=== PATIENT | male | born 1955 | race Caucasian/White ===

== ENCOUNTER 2016-10-23 02:10 | Emergency (ER) | payer MEDICARE, MEDICAID ==
[~2016-10-23] VITALS: Ht 172.7 cm; Wt 115.5 kg
[~2016-10-23 02:10] MED LIST: ALLO300; ALLO300T2 PO; CITA20 PO; LISI-363 PO; VALI5TAB OR
[2016-10-23 02:11] VITALS: BP 154/69; PULSE 92; RESP 16; TEMP 98.1; O2SAT 95
[2016-10-23 03:31] LABS: BASOPHIL # 0.1 TH/MM3 (0-0.2); BASOPHIL % 0.7 % (0.0-2.0); EOSINOPHIL % 0.5 % (0.0-4.0); HEMATOCRIT 37.6 % (39.0-51.0); HEMO FLAGS DIFF FINAL; LYMPH % 28.3 % (9.0-44.0); LYMPHOCYTE # 2.2 TH/MM3 (1.0-4.8); MEAN CELL VOLUME 92.2 FL (80.0-100.0); MEAN CORPUSCULAR HGB CONC 34.7 % (32.0-36.0); MONO % 6.6 % (0.0-8.0); NEUT % 63.9 % (16.0-70.0); PLATELET COUNT 191 TH/MM3 (150-450); RED BLOOD COUNT 4.08 MIL/MM3 (4.50-5.90); RED CELL DISTRIBUTION WIDTH 13.5 % (11.6-17.2); WHITE BLOOD COUNT 7.9 TH/MM3 (4.0-11.0)
[2016-10-23 03:40] LABS: AMPHETAMINE, URINE NEG (NEG); BARBITURATES, URINE NEG (NEG); COCAINE, URINE NEG (NEG)
[2016-10-23 03:51] LABS: ALKALINE PHOSPHATASE 56 U/L (45-117); TOTAL BILIRUBIN ADULT 0.4 MG/DL (0.2-1.0)
[2016-10-23 03:52] LABS: ALT (GPT) 32 U/L (12-78); ANION GAP 6 MEQ/L (5-15); AST (GOT) 16 U/L (15-37); BICARBONATE 25.9 MEQ/L (21.0-32.0); BLOOD UREA NITROGEN 20 MG/DL (7-18); CHLORIDE 108 MEQ/L (98-107); GLOMERULAR FILTRATION RATE 75 ML/MIN (>89); SODIUM (NA) 140 MEQ/L (136-145)
[2016-10-23 03:57] LABS: ACETAMINOPHEN LESS THAN 2.0 MCG/ML (10.0-30.0); POTASSIUM 4.2 MEQ/L (3.5-5.1)
--- NOTE | 2016-10-23 04:35 | PD ---
HPI Chief Complaint: Psychiatric Symptoms Time Seen by Provider: 04:34 Travel History International Travel<30 days: No Contact w/Intl Traveler<30days: No Traveled to known affect area: No History of Present Illness HPI 61-year-old white male presents to emergency department on a voluntary basis for psychological evaluation. The patient has a history of schizoaffective disorder. The patient states that he is feeling increasingly depressed. His little over one year ago. He has not been able to sleep. He' s become less active and mobile. He suffering from chronic back pain. The patient is an extremely vague historian. He denies any suicidal or homicidal ideation. PFSH Past Medical History Narrative Medical Gout, hyperlipidemia, obesity, history of insomnia, hypertension, schizoaffective disorder Bipolar Disorder: No (states thinks he is, not dx) Depression: Yes Cardiovascular Problems: Yes High Cholesterol: Yes Diminished Hearing: No Gout: Yes Hypertension: Yes Psychiatric: Yes Schizophrenia: No (states thinks he is on verge of becoming, not dx) Tetanus Vaccination: Unknown Past Surgical History Narrative Surgical Herniorrhaphy Abdominal Surgery: Yes (HERNIA REPAIR) Body Medical Devices: GOUT Social History Alcohol Use: No Tobacco Use: No Substance Use: No Allergies-Medications (Allergen,Severity, Reaction): Uncoded Allergies: ibuprofen (Allergy, Severe, 04/26/12) Throat swelling Reported Meds & Prescriptions Reported Meds & Active Scripts Active Reported Zyloprim 300 Mg Tab (Allopurinol) 300 Mg Tab 300 Mg .XX Valium (Diazepam) 5 Mg Tab 5 Mg OR TID Allopurinol 300 Mg Tab 300 Mg PO DAILY Celexa 20 Mg Tab (Citalopram Hydrobromide) 20 Mg Tab 20 Mg PO DAILY Lisinopril 20 Mg Tab 20 Mg PO BID Review of Systems ROS Limitations: Poor Historian Physical Exam Narrative GENERAL: Well-nourished, well-developed patient. Obese. His speech is slow and he seems somewhat disorganized. Tangential thought process. SKIN: Warm and dry. HEAD: Normocephalic and atraumatic. EYES: No scleral icterus. No injection or drainage. ENT: No nasal drainage noted. Mucous membranes pink. Airway patent. NECK: Supple, trachea midline. Moves head freely without obvious discomfort. CARDIOVASCULAR: Regular rate and rhythm without murmurs, gallops, or rubs. RESPIRATORY: Breath sounds equal bilaterally. No accessory muscle use. GASTROINTESTINAL: Abdomen soft, non-tender, obese EXTREMITIES: No cyanosis or edema. BACK: Complains of diffuse tenderness in the lower lumbar spine. Moves slowly due to pain. Without obvious deformity. No CVA tenderness. NEURO: Patient is alert and oriented. no sensorimotor deficits. Nonfocal. Normal speech. PSYCH: No delusions. No auditory or visual hallucinations. Data Data Last Documented VS Vital Signs Date Time Temp Pulse Resp B/P Pulse Ox O2 Delivery O2 Flow Rate FiO2 10/23/16 02:11 98.1 92 16 154/69 95 Room Air Orders Complete Blood Count With Diff (10/23/16 02:53) Comprehensive Metabolic Panel (10/23/16 02:53) Drug Screen, Random Urine (10/23/16 02:53) Alcohol (Ethanol) (10/23/16 02:53) Salicylates (Aspirin) (10/23/16 02:53) Tylenol (Acetaminophen) (10/23/16 02:53) Psych Screen (10/23/16 02:53) Labs Laboratory Tests Test 10/23/16 03:00 White Blood Count 7.9 TH/MM3 Red Blood Count 4.08 MIL/MM3 Hemoglobin 13.1 GM/DL Hematocrit 37.6 % Mean Corpuscular Volume 92.2 FL Mean Corpuscular Hemoglobin 32.0 PG Mean Corpuscular Hemoglobin 34.7 % Concent Red Cell Distribution Width 13.5 % Platelet Count 191 TH/MM3 Mean Platelet Volume 10.1 FL Neutrophils (%) (Auto) 63.9 % Lymphocytes (%) (Auto) 28.3 % Monocytes (%) (Auto) 6.6 % Eosinophils (%) (Auto) 0.5 % Basophils (%) (Auto) 0.7 % Neutrophils # (Auto) 5.0 TH/MM3 Lymphocytes # (Auto) 2.2 TH/MM3 Monocytes # (Auto) 0.5 TH/MM3 Eosinophils # (Auto) 0.0 TH/MM3 Basophils # (Auto) 0.1 TH/MM3 CBC Comment DIFF FINAL Differential Comment Sodium Level 140 MEQ/L Potassium Level 4.2 MEQ/L Chloride Level 108 MEQ/L Carbon Dioxide Level 25.9 MEQ/L Anion Gap 6 MEQ/L Blood Urea Nitrogen 20 MG/DL Creatinine 1.01 MG/DL Estimat Glomerular Filtration 75 ML/MIN Rate Random Glucose 105 MG/DL Calcium Level 8.8 MG/DL Total Bilirubin 0.4 MG/DL Aspartate Amino Transf 16 U/L (AST/SGOT) Alanine Aminotransferase 32 U/L (ALT/SGPT) Alkaline Phosphatase 56 U/L Total Protein 7.0 GM/DL Albumin 3.6 GM/DL Salicylates Level LESS THAN 1.7 MG/DL Urine Opiates Screen NEG Acetaminophen Level LESS THAN 2.0 MCG/ML Urine Barbiturates Screen NEG Urine Amphetamines Screen NEG Urine Benzodiazepines Screen NEG Urine Cocaine Screen NEG Urine Cannabinoids Screen NEG Ethyl Alcohol Level LESS THAN 3 MG/DL MDM Medical Decision Making Medical Screen Exam Complete: Yes Emergency Medical Condition: Yes Medical Record Reviewed: Yes Interpretation(s) Laboratory Tests Test 10/23/16 03:00 White Blood Count 7.9 TH/MM3 Red Blood Count 4.08 MIL/MM3 Hemoglobin 13.1 GM/DL Hematocrit 37.6 % Mean Corpuscular Volume 92.2 FL Mean Corpuscular Hemoglobin 32.0 PG Mean Corpuscular Hemoglobin 34.7 % Concent Red Cell Distribution Width 13.5 % Platelet Count 191 TH/MM3 Mean Platelet Volume 10.1 FL Neutrophils (%) (Auto) 63.9 % Lymphocytes (%) (Auto) 28.3 % Monocytes (%) (Auto) 6.6 % Eosinophils (%) (Auto) 0.5 % Basophils (%) (Auto) 0.7 % Neutrophils # (Auto) 5.0 TH/MM3 Lymphocytes # (Auto) 2.2 TH/MM3 Monocytes # (Auto) 0.5 TH/MM3 Eosinophils # (Auto) 0.0 TH/MM3 Basophils # (Auto) 0.1 TH/MM3 CBC Comment DIFF FINAL Differential Comment Sodium Level 140 MEQ/L Potassium Level 4.2 MEQ/L Chloride Level 108 MEQ/L Carbon Dioxide Level 25.9 MEQ/L Anion Gap 6 MEQ/L Blood Urea Nitrogen 20 MG/DL Creatinine 1.01 MG/DL Estimat Glomerular Filtration 75 ML/MIN Rate Random Glucose 105 MG/DL Calcium Level 8.8 MG/DL Total Bilirubin 0.4 MG/DL Aspartate Amino Transf 16 U/L (AST/SGOT) Alanine Aminotransferase 32 U/L (ALT/SGPT) Alkaline Phosphatase 56 U/L Total Protein 7.0 GM/DL Albumin 3.6 GM/DL Salicylates Level LESS THAN 1.7 MG/DL Urine Opiates Screen NEG Acetaminophen Level LESS THAN 2.0 MCG/ML Urine Barbiturates Screen NEG Urine Amphetamines Screen NEG Urine Benzodiazepines Screen NEG Urine Cocaine Screen NEG Urine Cannabinoids Screen NEG Ethyl Alcohol Level LESS THAN 3 MG/DL Differential Diagnosis MDM: High Differential diagnoses: Schizophrenia, schizoaffective disorder, bipolar, anxiety, depression, adjustment reaction, mood disorder NOS, ODD, depressive disorder NOS, dementia, dementia with agitation, psychosis NOS, substance induced mood disorder, intermittent explosive disorder, Asperger syndrome, infection,electrolyte abnormality, malingering. Narrative Course Mental health screening discussed with the patient. Psychiatric screen ordered. The patient is been medically cleared. 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
[2016-10-23 05:24] VITALS: BP 135/86; PULSE 83; RESP 19; TEMP 98.7; O2SAT 97
[2016-10-23 06:44] VITALS: BP 142/81; PULSE 85; RESP 17; O2SAT 98
--- NOTE | 2016-10-23 11:15 | MB ---
cc: BEAU CASTELAN MD DATE OF CONSULTATION: 10/23/2016 PHYSICIAN REQUESTING CONSULTATION Emergency Department. REASON FOR CONSULTATION Voluntary psychiatric evaluation. HISTORY OF PRESENT ILLNESS Mr. Dodd is a 61-year-old male with uncertain reported past psychiatric history, who presents on a voluntary basis for psychiatric evaluation. He told the ED provider that he was feeling more depressed. He told the psychiatric screener that sometimes he hears things outside of his house at night. Reviewing the electronic medical record I note that the patient was admitted under Dr. Palmer in April of 2013. Dr. Palmer's discharge diagnosis was depression NOS. The patient is seen and examined. Chart reviewed. Case discussed with nursing staff. There has been no evidence of any suicidality or homicidality during observation in the J pod. On my examination this morning, the patient strikes me chiefly as fairly dependent and needy. He says that the reason that he came into the emergency room was because he was looking for "an answer. Everyone needs an answer." He is unable to really provide much detail into what sort of answer he was seeking. He describes his mood as "pretty docile." His sleep is reportedly chronically poor. No real depressive or hypomanic/manic symptoms. He denies any suicidal or homicidal ideation. He denies any audiovisual hallucinations and I can elicit no delusional beliefs. The remainder of the psychiatric ROS is negative. The patient does not feel that he needs to be psychiatrically hospitalized at this time. PAST PSYCHIATRIC HISTORY The patient is unsure of his diagnosis. He has the chart diagnosis of depressive disorder. He says that he follows with Dr. Keenan from psychiatry in the community. He says that his most recent psychiatric hospital was at [facility] about 2 years ago. He denies a history of suicide attempts. FAMILY HISTORY The patient denies a family history of serious mental illness or suicide. He does admit that there is a family history of drug use. CHEMICAL DEPENDENCY HISTORY When I inquire if the patient is using any drugs or alcohol he says "a little of each." He goes on to elaborate that he has been using Percocet and Xanax. When I try to pin him down on the exact quantities, he is fairly vague. He says "whatever I can get." He relates that he went to an old physician of his to get some Xanax tablets. I have reviewed the patient's [email or web address] controlled substances database report. It appears that he was given some hydrocodone, acetaminophen at the end of September and then has similar script for Hydrocodone, acetaminophen at the end of August along with Xanax script from the middle of August. Before this the Xanax prescriptions are more sporadic but the patient has been receiving the opiates throughout. SOCIAL HISTORY The patient reports that he has a tenth grade education. He is disabled from a back injury in 2008. He says that his common-law of 30 years last June. He seems to be grieving appropriately. He denies any or legal history. He denies any access to guns or firearms. PAST MEDICAL HISTORY See electronic medical record. REVIEW OF SYSTEMS No reported headache, vision or hearing changes, chest pain, shortness of breath, bowel or bladder issues. No other somatic complaints. The remainder of the psychiatric ROS is negative. MENTAL STATUS EXAMINATION The patient is in hospital w. He is fairly well-groomed. He is awake and alert and oriented to person, place and date. His registration is 3/3 but his recall is 0/3. He is able to spell the word world forward and backward without error. He is able to name two items and repeat a phrase. He is able to name the current president but cannot recall any of the previous presidents. Speech is within normal limits for rate, tone and volume. Language and fund of knowledge seem adequate and appropriate for age. Mood is described as above and affect is fairly full and reactive. Thought process is linear. No loosening of associations. No evident delusions. Denies audiovisual hallucinations. Denies suicidal or homicidal ideation. Insight and judgment are perhaps fair. ASSESSMENT/PLAN 1. Adjustment disorder, unspecified. This is a 61-year-old male with psychiatric history as detailed above, who presents on a voluntary basis for psychiatric evaluation. The patient's goals in seeking psychiatric evaluation are somewhat obscure and he is unable to really clarify them for me. He denies any suicidal or homicidal ideation at present. I can detect no unstable mood, anxiety or psychotic disorder in this patient at this time. There has been no evidence of behavioral disturbance or suicidality/violence in the J pod. The patient does not meet Crooks Act criteria, nor does he require inpatient psychiatric stabilization at this time. There may be a component of substance use disorder if the patient has been misusing his prescribed controlled substances. I recommend that the patient follow up with his outpatient psychiatric provider. I have also counseled the patient to return to the psychiatric emergency room for any concerning psychiatric symptoms. Otherwise, at this time I have no specific recommendations and the patient is psychiatrically clear for discharge from the ED. Thank you very much for this consultation. Beau Castelan DC/ALFERDITO /8:39 AM /10:56 AM NABIL
[2016-10-24] MEDS ORDERED: DIAZ5 PO ×2 (13:24)
[2016-10-24] MEDS ORDERED: CELE20TA PO ×2 (13:24)
[2016-10-24] MEDS ORDERED: ALLO300T2 PO ×2 (13:24)
[2016-10-24] MEDS ORDERED: LISI-515 PO ×2 (13:24)
== END 2016-10-23 09:43 | disposition home or self-care (01) ==
LOC: NEPA 02:10 → NEPJ 09:43
DX: F32.3 Major depressive disorder, single episode, severe with psychotic features (principal); G89.29 Other chronic pain; F32.9 Major depressive disorder, single episode, unspecified; E78.00 Pure hypercholesterolemia, unspecified; M10.9 Gout, unspecified; I10 Essential (primary) hypertension
CPT/HCPCS: 80053; 80307; 85025; 99283; G0480; 80320; 80329

== ENCOUNTER 2016-10-24 11:06 | Inpatient (IN) | payer OTHER, MEDICARE ==
[~2016-10-24] VITALS: Ht 175.3 cm; Wt 113.0 kg
[2016-10-24] VITALS (10 sets, daily range): BP systolic 109–181; BP diastolic 58–84; PULSE 69–101; RESP 15–25; TEMP 98.2–98.8; O2SAT 97–99
--- NOTE | 2016-10-24 11:09 | PD ---
HPI Chief Complaint: Altered Mental Status Time Seen by Provider: 11:09 Travel History International Travel<30 days: No Contact w/Intl Traveler<30days: No Traveled to known affect area: No History of Present Illness HPI 61-year-old male brought in by EMS with altered mental status. Patient reportedly was outside a local druze early this morning, and spoke to police at approximately 3 AM. At that time he states he took his bipolar medications. Is now reported that the patient drank almost a whole 12 ounce bottle of mouthwash and took at least 2 Lortabs. He now presents obtunded but stable. It is notable the patient was seen yesterday for psychiatric evaluation for his major depression. Patient is currently nonverbal but oxygenating well. There is no sign of trauma on the patient. Patient has an allergy to ibuprofen. PFSH Past Medical History Medical History: Unable to Obtain Bipolar Disorder: No (states thinks he is, not dx) Depression: Yes Cardiovascular Problems: Yes High Cholesterol: Yes Diminished Hearing: No Gout: Yes Hypertension: Yes Psychiatric: Yes Schizophrenia: No (states thinks he is on verge of becoming, not dx) Past Surgical History Abdominal Surgery: Yes (HERNIA REPAIR) Body Medical Devices: GOUT Social History Alcohol Use: No Tobacco Use: No Substance Use: No (DENIED) Allergies-Medications (Allergen,Severity, Reaction): Uncoded Allergies: ibuprofen (Allergy, Severe, 04/26/12) Throat swelling Reported Meds & Prescriptions Reported Meds & Active Scripts Active Reported Lisinopril 20 Mg Tab 20 Mg PO BID Valium (Diazepam) 5 Mg Tab 5 Mg PO TID Celexa (Citalopram Hydrobromide) 20 Mg Tab 20 Mg PO DAILY Allopurinol 300 Mg Tab 300 Mg PO DAILY Review of Systems ROS Limitations: Intoxication General / Constitutional: No: Fever Eyes: No: Visual changes HENT: No: Headaches Cardiovascular: No: Chest Pain or Discomfort Respiratory: No: Shortness of Breath Gastrointestinal: No: Abdominal Pain Genitourinary: No: Dysuria Musculoskeletal: No: Pain Skin: No Rash Neurologic: No: Weakness Psychiatric: No: Depression Endocrine: No: Polydipsia Hematologic/Lymphatic: No: Easy Bruising Physical Exam Exam Limitations: Intoxication Narrative GENERAL: Patient appears to be resting comfortably and in no acute distress. SKIN: Warm and dry. Normal color. Normal turgor. HEAD: Atraumatic. Normocephalic. Nontender. EYES: Pupils mildly pinpoint and equal and round. No scleral icterus. No injection or drainage. ENT: No nasal bleeding or discharge. Mucous membranes pink and moist. Pharynx is normal. No signs of dental injury. Airways patent. NECK: Trachea midline. No JVD. Neck is supple. There is no step-off. CARDIOVASCULAR: Regular rate and rhythm. No murmurs gallops or rubs. RESPIRATORY: No accessory muscle use. Clear to auscultation. Breath sounds equal bilaterally. MUSCULOSKELETAL: Extremities without clubbing, cyanosis, or edema. No obvious deformities. NEUROLOGICAL: Obtunded but arousable. No obvious cranial nerve deficits. Motor grossly within normal limits. Five out of 5 muscle strength in the arms and legs. PSYCHIATRIC: Patient is nonverbal. Cannot assess at this time. Data Data Last Documented VS Vital Signs Date Time Temp Pulse Resp B/P Pulse Ox O2 Delivery O2 Flow Rate FiO2 10/24/16 13:00 96 16 181/84 98 2 10/24/16 12:00 Nasal Cannula 10/24/16 11:16 98.6 Orders Electrocardiogram (10/24/16 11:14) Alcohol (Ethanol) (10/24/16 11:14) Complete Blood Count With Diff (10/24/16 11:14) Comprehensive Metabolic Panel (10/24/16 11:14) Drug Screen, Random Urine (10/24/16 11:14) Salicylates (Aspirin) (10/24/16 11:14) Tylenol (Acetaminophen) (10/24/16 11:14) Urinalysis - C+S If Indicated (10/24/16 11:14) Chest, Single Ap (10/24/16 11:14) Iv Access Insert/Monitor (10/24/16 11:14) Cath For Specimen (10/24/16 11:14) Ecg Monitoring (10/24/16 11:14) Oximetry (10/24/16 11:14) Sodium Chloride 0.9% Flush (Ns Flush) (10/24/16 11:15) Sodium Chlor 0.9% 1000 Ml Inj (Ns 1000 M (10/24/16 11:14) Psych Screen (10/24/16 11:21) Ammonia Aromatic Inhalant (Aromatic Ammo (10/24/16 11:45) Naloxone Inj (Narcan Inj) (10/24/16 12:00) Ct Brain W/O Iv Contrast(Rout) (10/24/16 11:53) Fosphenytoin Inj (Cerebyx Inj) (10/24/16 12:00) Arterial Blood Gas (Abg) (10/24/16 ) Naloxone Inj (Narcan Inj) (10/24/16 12:45) Naloxone Inj (Narcan Inj) (10/24/16 13:00) Admit Order (Ed Use Only) (10/24/16 14:37) Place In Observation (10/24/16 ) Vital Signs (Adult) Q4H (10/24/16 14:37) Neuro Checks Q4H (10/24/16 14:37) Activity Oob With Assistance (10/24/16 14:37) ^ Cloth Folder Hand / Telemetry .CONTINUOUS (10/24/16 14:37) Intake + Output ARISTEO.QSHIFT (10/24/16 14:37) Diet Regular Basic (10/24/16 Dinner) Sodium Chloride 0.9% Flush (Ns Flush) (10/24/16 14:45) Sodium Chloride 0.9% Flush (Ns Flush) (10/24/16 21:00) Acetaminophen (Tylenol) (10/24/16 14:45) Ondansetron Inj (Zofran Inj) (10/24/16 14:45) Prochlorperazine Supp (Compazine Supp) (10/24/16 14:45) Bisacodyl Supp (Dulcolax Supp) (10/24/16 14:45) Magnesium Hydroxide Liq (Milk Of Magnesi (10/24/16 14:45) Sennosides (Senokot) (10/24/16 14:45) Basic Metabolic Panel (Bmp) (10/25/16 06:00) Complete Blood Count With Diff (10/25/16 06:00) Resp Oxygen Ananda C Titrat 1-4 L (10/24/16 ) Pt Request For Service (10/24/16 14:37) Case Management Consult (10/24/16 14:37) Enoxaparin Inj (Lovenox Inj) (10/24/16 14:45) Scd Bilateral/Knee High ARISTEO.BID (10/24/16 14:37) Simon Bilateral/Knee High ARISTEO.QSHIFT (10/24/16 14:37) ^ Seizure Precautions (10/24/16 14:37) Labs Laboratory Tests Test 10/24/16 10/24/16 11:50 12:10 White Blood Count 12.3 TH/MM3 Red Blood Count 4.07 MIL/MM3 Hemoglobin 12.9 GM/DL Hematocrit 38.0 % Mean Corpuscular Volume 93.2 FL Mean Corpuscular Hemoglobin 31.8 PG Mean Corpuscular Hemoglobin 34.1 % Concent Red Cell Distribution Width 13.4 % Platelet Count 227 TH/MM3 Mean Platelet Volume 9.9 FL Neutrophils (%) (Auto) 83.6 % Lymphocytes (%) (Auto) 9.9 % Monocytes (%) (Auto) 5.3 % Eosinophils (%) (Auto) 0.5 % Basophils (%) (Auto) 0.7 % Neutrophils # (Auto) 10.3 TH/MM3 Lymphocytes # (Auto) 1.2 TH/MM3 Monocytes # (Auto) 0.7 TH/MM3 Eosinophils # (Auto) 0.1 TH/MM3 Basophils # (Auto) 0.1 TH/MM3 CBC Comment DIFF FINAL Differential Comment Sodium Level 138 MEQ/L Potassium Level 4.1 MEQ/L Chloride Level 103 MEQ/L Carbon Dioxide Level 24.1 MEQ/L Anion Gap 11 MEQ/L Blood Urea Nitrogen 22 MG/DL Creatinine 1.24 MG/DL Estimat Glomerular Filtration 59 ML/MIN Rate Random Glucose 143 MG/DL Calcium Level 9.7 MG/DL Total Bilirubin 0.6 MG/DL Aspartate Amino Transf 20 U/L (AST/SGOT) Alanine Aminotransferase 38 U/L (ALT/SGPT) Alkaline Phosphatase 72 U/L Total Protein 8.2 GM/DL Albumin 4.5 GM/DL Salicylates Level 2.2 MG/DL Acetaminophen Level LESS THAN 2.0 MCG/ML Ethyl Alcohol Level LESS THAN 3 MG/DL Urine Color YELLOW Urine Turbidity CLEAR Urine pH 5.0 Urine Specific [place] 1.030 Urine Protein NEG mg/dL Urine Glucose (UA) NEG mg/dL Urine Ketones 10 mg/dL Urine Occult Blood SMALL Urine Nitrite NEG Urine Bilirubin NEG Urine Urobilinogen LESS THAN 2.0 MG/DL Urine Leukocyte Esterase NEG Urine RBC 20 /hpf Urine WBC 1 /hpf Urine Squamous Epithelial <1 /hpf Cells Urine Hyaline Casts 18 /lpf Urine Mucus FEW /lpf Microscopic Urinalysis Comment CULT NOT INDICATED Blood Gas Puncture Site LT RADIAL Blood Gas Patient Temperature 98.6 Blood Gas HCO3 22 mmol/L Blood Gas Base Excess -1.9 mmol/L Blood Gas Oxygen Saturation 92 % Arterial Blood pH 7.40 Arterial Blood Partial 37 mmHg Pressure CO2 Arterial Blood Partial 75 mmHG Pressure O2 Arterial Blood Oxygen Content 18.3 Vol % Arterial Blood 1.7 % Carboxyhemoglobin Arterial Blood Methemoglobin 2.0 % Blood Gas Hemoglobin 14.2 G/DL Oxygen Delivery Device RA Urine Opiates Screen POS Urine Barbiturates Screen NEG Urine Amphetamines Screen NEG Urine Benzodiazepines Screen NEG Urine Cocaine Screen NEG Urine Cannabinoids Screen NEG MDM Medical Decision Making Medical Screen Exam Complete: Yes Emergency Medical Condition: Yes Differential Diagnosis Intoxication. Possible intentional overdose. History of major depression. Narrative Course Patient is obtunded but appears medically stable at time of exam. Patient is oxygenating well on room air. Labs ordered including CBC, CMP, serum alcohol level, aspirin level, Tylenol level, urine drug screen. EKG is ordered. Patient is discussed with Dr. Barrera who sees the patient as well. Ammonia capsules or use to try and stimulate the patient without significant response. Patient is a question of some seizure like activity. Dr. Barrera recommends a trial of 0.8 mg Narcan IV, as well as fosphenytoin thousand milligrams IV. Arterial blood gases ordered as well. CT of the brain is added as well. Call was placed to Dr. Monroy, the neurologist to discuss possible need for bedside EEG. 1320 hrs. patient is alert and oriented after returning from CT scan. Patient admits that last evening he wanted to kill himself by taking overdose of narcotics. Currently patient states no pain or physical complaints. Patient is discussed with Dr. Barrera who feels the patient should be admitted for the next 23 hours at least to rule out any seizure activity. Bedside EEG is canceled, as this could be done while he is in observation. Labs show a CMP with normal sodium, potassium, and chloride, carbon dioxide 24.1. BUN is 22. Is 1.24. Random glucose is slightly elevated 143. Urinalysis is unremarkable. Urine tox screen is positive for benzodiazepines, salicylates at 2.2, and acetaminophen is 2.0. Ethyl alcohol is less than 3. Patient is Crooks acted based on his history and risk for self-harm. Hospitalist was spoken to by Dr. Barrera regarding admission to observation and need for psych eval. Diagnosis Primary Impression: Narcotic overdose Qualified Code: T40.602A - Narcotic overdose, intentional self-harm, initial encounter Additional Impressions: Suicidal intent Observed seizure-like activity Condition: Stable Chavo Dangelo Oct 24, 2016 11:09
[2016-10-24] MEDS ORDERED: SODIUM CHLOR 0.9% 1000 ML INJ 1,000 ML IV ONE (11:14)
[2016-10-24] MEDS ORDERED: SODIUM CHLORIDE 0.9% FLUSH 5 ML FLUSH IVF PRN (11:15)
[2016-10-24] MEDS ORDERED: AMMONIA AROMATIC INHALANT 0.33 ML NASAL ONE (11:45)
[2016-10-24] MEDS ORDERED: NALOXONE HCL 0.4 MG/ML AMP IVP ONE (12:00)
[2016-10-24] MEDS ORDERED: FOSPHENYTOIN INJ 1,000 MGPE in SODIUM CHLORIDE 0.9% INJ 50 ML IV ONE (12:00)
[2016-10-24 12:41] LABS: ACETAMINOPHEN LESS THAN 2.0 MCG/ML (10.0-30.0); ALKALINE PHOSPHATASE 72 U/L (45-117); ALT (GPT) 38 U/L (12-78); ANION GAP 11 MEQ/L (5-15); AST (GOT) 20 U/L (15-37); BICARBONATE 24.1 MEQ/L (21.0-32.0); BLOOD UREA NITROGEN 22 MG/DL (7-18); CHLORIDE 103 MEQ/L (98-107); GLOMERULAR FILTRATION RATE 59 ML/MIN (>89); POTASSIUM 4.1 MEQ/L (3.5-5.1); SODIUM (NA) 138 MEQ/L (136-145); TOTAL BILIRUBIN ADULT 0.6 MG/DL (0.2-1.0)
[2016-10-24 12:43] LABS: BLOOD, URINE SMALL (NEG); GLUCOSE,URINE NEG (NEG); HYALINE CAST, URINE 18 /lpf (RARE); KETONE, URINE 10 mg/dL (NEG); MUCUS URINE FEW /lpf (OCC); NITRITE,URINE NEG (NEG); SQUAMOUS EPITHELIAL CELL URINE <1 /hpf (0-5); URINE COLOR YELLOW (YELLW/STRAW)
[2016-10-24 12:45] LABS: COMMENT (UR) CULT NOT INDICATED; CULTURE IF INDICATED CULT NOT INDICATED
[2016-10-24] MEDS ORDERED: NALOXONE HCL 0.4 MG/ML AMP IV SCH (12:45)
[2016-10-24 12:46] LABS: AMPHETAMINE, URINE NEG (NEG); BARBITURATES, URINE NEG (NEG); COCAINE, URINE NEG (NEG)
--- NOTE | 2016-10-24 12:50 | RADRPT ---
EXAM DATE/TIME: 10/24/2016 11:52 [facility] COMPARISON: No previous studies available for comparison. INDICATIONS : Short of breath, lethargic, syncope MEDICAL HISTORY : unobtainable SURGICAL HISTORY : unobtainable ENCOUNTER: Initial ACUITY: 1 day PAIN SCORE: Non-responsive. LOCATION: Bilateral chest FINDINGS: A single view of the chest demonstrates the lungs to be symmetrically aerated without evidence of mas s, infiltrate or effusion. The cardiomediastinal contours are unremarkable. Osseous structures are intact. CONCLUSION: No acute disease. Enoc Medrano MD on October 24, 2016 at 12:48 Board Certified Radiologist. This report was verified electronically.
[2016-10-24] MEDS ORDERED: NALOXONE 4 MG/D5W 246 ML ADMIX IV SCH ×2 (13:00)
[2016-10-24] MEDS ORDERED: DIAZ5 PO ×2 (13:24)
[2016-10-24] MEDS ORDERED: LISI-515 PO ×2 (13:24)
[2016-10-24] MEDS ORDERED: ALLO300T2 PO ×2 (13:24)
[2016-10-24] MEDS ORDERED: CELE20TA PO ×2 (13:24)
[2016-10-24 13:50] LABS: AUTOMATED NEUTROPHIL # 10.3 TH/MM3 (1.8-7.7); BASOPHIL # 0.1 TH/MM3 (0-0.2); BASOPHIL % 0.7 % (0.0-2.0); EOSINOPHIL # 0.1 TH/MM3 (0-0.4); EOSINOPHIL % 0.5 % (0.0-4.0); HEMO FLAGS DIFF FINAL; LYMPH % 9.9 % (9.0-44.0); LYMPHOCYTE # 1.2 TH/MM3 (1.0-4.8); MEAN CELL VOLUME 93.2 FL (80.0-100.0); MEAN CORPUSCULAR HEMOGLOBIN 31.8 PG (27.0-34.0); MEAN CORPUSCULAR HGB CONC 34.1 % (32.0-36.0); MONO % 5.3 % (0.0-8.0); NEUT % 83.6 % (16.0-70.0); PLATELET COUNT 227 TH/MM3 (150-450); RED BLOOD COUNT 4.07 MIL/MM3 (4.50-5.90); RED CELL DISTRIBUTION WIDTH 13.4 % (11.6-17.2); WHITE BLOOD COUNT 12.3 TH/MM3 (4.0-11.0)
--- NOTE | 2016-10-24 14:24 | RADRPT ---
EXAM DATE/TIME: 10/24/2016 13:05 [place] COMPARISON: CT BRAIN W/O CONTRAST, March 26, 2013, 23:44. INDICATIONS : Altered mental status. RADIATION DOSE: 56.77 CTDIvol (mGy) MEDICAL HISTORY : Hypertension. SURGICAL HISTORY : Hernia repair. ENCOUNTER: Initial ACUITY: 1 day PAIN SCALE: 0/10 LOCATION: cranial TECHNIQUE: Multiple contiguous axial images were obtained of the head. Using automated exposure control and adj ustment of the mA and/or kV according to patient size, radiation dose was kept as low as reasonably a chievable to obtain optimal diagnostic quality images. FINDINGS: CEREBRUM: The ventricles are normal for age. No evidence of midline shift, mass lesion, hemorrhage or acute in farction. No extra-axial fluid collections are seen. POSTERIOR FOSSA: The cerebellum and brainstem are intact. The 4th ventricle is midline. The cerebellopontine angle i s unremarkable. EXTRACRANIAL: The visualized portion of the orbits is intact. SKULL: The calvaria is intact. No evidence of skull fracture. CONCLUSION: No acute disease. Enoc Medrano MD on October 24, 2016 at 14:21 Board Certified Radiologist. This report was verified electronically.
[2016-10-24 14:40] LABS: BLOOD GAS BASE EXCESS -1.9 mmol/L (-2-2); BLOOD GAS CARBOXYHEMOGLOBIN 1.7 % (0-4); BLOOD GAS HCO3 22 mmol/L (22-26); BLOOD GAS O2 HGB SATURATION 92 % (90-100); BLOOD GAS OXYGEN CONTENT 18.3 Vol % (12.0-20.0); BLOOD GAS PCO2 37 mmHg (38-42); BLOOD GAS PO2 75 mmHG (61-120); BLOOD GAS TOTAL HGB 14.2 G/DL (12.0-16.0); CRITICAL VALUE NO; DRAW SITE LT RADIAL; NUMBER OF ARTERIAL PUNCTURES 1; OXYGEN DEVICE RA; STAT YES; TEMP CORR TO 98.6; ULNAR PULSE Y
[2016-10-24] MEDS ORDERED: ACETAMINOPHEN 325 MG TAB PO PRN (14:45)
[2016-10-24] MEDS ORDERED: SENNOSIDES 8.6 MG TAB PO PRN (14:45)
[2016-10-24] MEDS ORDERED: PROCHLORPERAZINE 25 MG SUPP PR PRN (14:45)
[2016-10-24] MEDS ORDERED: BISACODYL 10 MG SUPP PR PRN (14:45)
[2016-10-24] MEDS ORDERED: MAGNESIUM HYDROXIDE SUSP 30 ML CUP PO PRN (14:45)
[2016-10-24] MEDS ORDERED: ONDANSETRON HCL 4 MG/2 ML VIAL IVP PRN (14:45)
[2016-10-24] MEDS ORDERED: SODIUM CHLORIDE 0.9% FLUSH 5 ML FLUSH FLUSH PRN (14:45)
--- NOTE | 2016-10-24 14:45 | PD ---
Data Data Last Documented VS Vital Signs Date Time Temp Pulse Resp B/P Pulse Ox O2 Delivery O2 Flow Rate FiO2 10/24/16 13:00 96 16 181/84 98 2 10/24/16 12:00 Nasal Cannula 10/24/16 11:16 98.6 Orders Electrocardiogram (10/24/16 11:14) Alcohol (Ethanol) (10/24/16 11:14) Complete Blood Count With Diff (10/24/16 11:14) Comprehensive Metabolic Panel (10/24/16 11:14) Drug Screen, Random Urine (10/24/16 11:14) Salicylates (Aspirin) (10/24/16 11:14) Tylenol (Acetaminophen) (10/24/16 11:14) Urinalysis - C+S If Indicated (10/24/16 11:14) Chest, Single Ap (10/24/16 11:14) Iv Access Insert/Monitor (10/24/16 11:14) Cath For Specimen (10/24/16 11:14) Ecg Monitoring (10/24/16 11:14) Oximetry (10/24/16 11:14) Sodium Chloride 0.9% Flush (Ns Flush) (10/24/16 11:15) Sodium Chlor 0.9% 1000 Ml Inj (Ns 1000 M (10/24/16 11:14) Psych Screen (10/24/16 11:21) Ammonia Aromatic Inhalant (Aromatic Ammo (10/24/16 11:45) Naloxone Inj (Narcan Inj) (10/24/16 12:00) Ct Brain W/O Iv Contrast(Rout) (10/24/16 11:53) Fosphenytoin Inj (Cerebyx Inj) (10/24/16 12:00) Arterial Blood Gas (Abg) (10/24/16 ) Naloxone Inj (Narcan Inj) (10/24/16 12:45) Naloxone Inj (Narcan Inj) (10/24/16 13:00) Admit Order (Ed Use Only) (10/24/16 14:37) Place In Observation (10/24/16 ) Vital Signs (Adult) Q4H (10/24/16 14:37) Neuro Checks Q4H (10/24/16 14:37) Activity Oob With Assistance (10/24/16 14:37) ^ Cadastral Surveyor / Telemetry .CONTINUOUS (10/24/16 14:37) Intake + Output ARISTEO.QSHIFT (10/24/16 14:37) Diet Regular Basic (10/24/16 Dinner) Sodium Chloride 0.9% Flush (Ns Flush) (10/24/16 14:45) Sodium Chloride 0.9% Flush (Ns Flush) (10/24/16 21:00) Acetaminophen (Tylenol) (10/24/16 14:45) Ondansetron Inj (Zofran Inj) (10/24/16 14:45) Prochlorperazine Supp (Compazine Supp) (10/24/16 14:45) Bisacodyl Supp (Dulcolax Supp) (10/24/16 14:45) Magnesium Hydroxide Liq (Milk Of Magnesi (10/24/16 14:45) Sennosides (Senokot) (10/24/16 14:45) Basic Metabolic Panel (Bmp) (10/25/16 06:00) Complete Blood Count With Diff (10/25/16 06:00) Resp Oxygen Ananda C Titrat 1-4 L (10/24/16 ) Pt Request For Service (10/24/16 14:37) Case Management Consult (10/24/16 14:37) Enoxaparin Inj (Lovenox Inj) (10/24/16 14:45) Scd Bilateral/Knee High ARISTEO.BID (10/24/16 14:37) Simon Bilateral/Knee High ARISTEO.QSHIFT (10/24/16 14:37) ^ Seizure Precautions (10/24/16 14:37) Labs Laboratory Tests Test 10/24/16 10/24/16 11:50 12:10 White Blood Count 12.3 TH/MM3 Red Blood Count 4.07 MIL/MM3 Hemoglobin 12.9 GM/DL Hematocrit 38.0 % Mean Corpuscular Volume 93.2 FL Mean Corpuscular Hemoglobin 31.8 PG Mean Corpuscular Hemoglobin 34.1 % Concent Red Cell Distribution Width 13.4 % Platelet Count 227 TH/MM3 Mean Platelet Volume 9.9 FL Neutrophils (%) (Auto) 83.6 % Lymphocytes (%) (Auto) 9.9 % Monocytes (%) (Auto) 5.3 % Eosinophils (%) (Auto) 0.5 % Basophils (%) (Auto) 0.7 % Neutrophils # (Auto) 10.3 TH/MM3 Lymphocytes # (Auto) 1.2 TH/MM3 Monocytes # (Auto) 0.7 TH/MM3 Eosinophils # (Auto) 0.1 TH/MM3 Basophils # (Auto) 0.1 TH/MM3 CBC Comment DIFF FINAL Differential Comment Sodium Level 138 MEQ/L Potassium Level 4.1 MEQ/L Chloride Level 103 MEQ/L Carbon Dioxide Level 24.1 MEQ/L Anion Gap 11 MEQ/L Blood Urea Nitrogen 22 MG/DL Creatinine 1.24 MG/DL Estimat Glomerular Filtration 59 ML/MIN Rate Random Glucose 143 MG/DL Calcium Level 9.7 MG/DL Total Bilirubin 0.6 MG/DL Aspartate Amino Transf 20 U/L (AST/SGOT) Alanine Aminotransferase 38 U/L (ALT/SGPT) Alkaline Phosphatase 72 U/L Total Protein 8.2 GM/DL Albumin 4.5 GM/DL Salicylates Level 2.2 MG/DL Acetaminophen Level LESS THAN 2.0 MCG/ML Ethyl Alcohol Level LESS THAN 3 MG/DL Urine Color YELLOW Urine Turbidity CLEAR Urine pH 5.0 Urine Specific [place] 1.030 Urine Protein NEG mg/dL Urine Glucose (UA) NEG mg/dL Urine Ketones 10 mg/dL Urine Occult Blood SMALL Urine Nitrite NEG Urine Bilirubin NEG Urine Urobilinogen LESS THAN 2.0 MG/DL Urine Leukocyte Esterase NEG Urine RBC 20 /hpf Urine WBC 1 /hpf Urine Squamous Epithelial <1 /hpf Cells Urine Hyaline Casts 18 /lpf Urine Mucus FEW /lpf Microscopic Urinalysis Comment CULT NOT INDICATED Blood Gas Puncture Site LT RADIAL Blood Gas Patient Temperature 98.6 Blood Gas HCO3 22 mmol/L Blood Gas Base Excess -1.9 mmol/L Blood Gas Oxygen Saturation 92 % Arterial Blood pH 7.40 Arterial Blood Partial 37 mmHg Pressure CO2 Arterial Blood Partial 75 mmHG Pressure O2 Arterial Blood Oxygen Content 18.3 Vol % Arterial Blood 1.7 % Carboxyhemoglobin Arterial Blood Methemoglobin 2.0 % Blood Gas Hemoglobin 14.2 G/DL Oxygen Delivery Device RA Urine Opiates Screen POS Urine Barbiturates Screen NEG Urine Amphetamines Screen NEG Urine Benzodiazepines Screen NEG Urine Cocaine Screen NEG Urine Cannabinoids Screen NEG MDM Supervised Visit with YADY: Yes Narrative Course The history, exam, and medical decision-making in the associated midlevel provider note were completed with my assistance. I reviewed and agree with the findings presented. I attest that I had a [id number] encounter with the patient on the same day, and personally performed and documented my assessment and findings in the medical record. *My assessment and Findings: This is a 61-year-old male who presents to the emergency department having had an intentional overdose of Lortab and mouthwash. When I assessed the patient he was obtunded and had some repetitive eye movements upward, he was not responding to pain and he was not following commands. He didn't respond much to ammonia capsules. He appeared to be having some repetitive movements which concern me for seizure. Patient was given a gram of fosphenytoin. He also was given some Narcan. His mental status improved significantly and any repetitive activity resolved. I think the patient should be placed in observation for 23 hours to ensure this doesn't reflect a seizure. He is under a Crooks act and needs to be seen by psychiatry. Diagnosis Primary Impression: Narcotic overdose Qualified Code: T40.602A - Narcotic overdose, intentional self-harm, initial encounter Additional Impressions: Observed seizure-like activity Suicidal intent Condition: Stable Lorena Barrera MD Oct 24, 2016 14:45
[2016-10-24] MEDS ORDERED: LORazepam 2 MG/ML VIAL ONE (15:27)
[2016-10-24] MEDS ORDERED: LORazepam 2 MG/ML VIAL IV PUSH ONE (15:30)
--- NOTE | 2016-10-24 16:19 | HHI.HP ---
HPI Service [facility] Primary Care Physician Non-Staff Admission Diagnosis intentional overdose Diagnoses: Chief Complaint: intentional overdose Travel History International Travel<30 Days: No Contact w/Intl Traveler <30 Da: No Traveled to Known Affected Are: No History of Present Illness 61-year-old male brought in by EMS with altered mental status. Patient reportedly was outside a local [employer] early this morning, and spoke to police at approximately 3 AM. At that time he states he took his bipolar medications. Is now reported that the patient drank almost a whole 12 ounce bottle of mouthwash and took at least 2 Lortabs. He now presents obtunded but stable. It is notable the patient was seen yesterday for psychiatric evaluation for his major depression. Patient is currently nonverbal but oxygenating well. There is no sign of trauma on the patient. Patient has an allergy to ibuprofen. Patient received 0.8 narcan in the ED. He did spoke with the ED doctor thereafter, admitting he took pills, and mouth wash in suicidal attempt. Most of history is obtain form staff and records as at the time I saw the patient in the ED he was not talking at all. He opened eyes but did not follow commands or answer questions. VS are stable. Review of Systems Other As stated in HPI. Patient is not talking Past Family Social History Past Medical History Depression/bipolar disorder Per records HTN, gout Past Surgical History Hernia repair Reported Medications Last Impressions Head CT 10/24/16 1153 Signed Impressions: Service Date/Time: Monday, October 24, 2016 13:05 - CONCLUSION: No acute disease. Enoc Medrano MD Chest X-Ray 10/24/16 1114 Signed Impressions: Service Date/Time: Monday, October 24, 2016 11:52 - CONCLUSION: No acute disease. Enoc Medrano MD Allergies: Uncoded Allergies: ibuprofen (Allergy, Severe, 04/26/12) Throat swelling Family History No family history per records Social History No h/o EtOH use, tobacco or illicit drug use. Physical Exam Vital Signs Vital Signs Date Time Temp Pulse Resp B/P Pulse Ox O2 Delivery O2 Flow Rate FiO2 10/24/16 15:28 98 Nasal Cannula 2.00 10/24/16 13:00 96 16 181/84 98 2 10/24/16 12:00 101 24 141/84 98 Nasal Cannula 2 10/24/16 11:16 98 Nasal Cannula 2 10/24/16 11:16 98.6 101 15 131/67 10/24/16 11:16 98.8 96 15 131/67 97 Room Air Physical Exam GENERAL: This is a well-nourished, well-developed patient, in no apparent distress. He has his eyes opened, he is not moving much and he is not answering any questions. SKIN: No rashes, ecchymoses or lesions. Cool and dry. HEAD: Atraumatic. Normocephalic. No temporal or scalp tenderness. EYES: Pupils equal round and reactive. Extraocular motions intact. No scleral icterus. No injection or drainage. ENT: Nose without bleeding, purulent drainage or septal hematoma. Throat without erythema, tonsillar hypertrophy or exudate. Uvula midline. Airway patent. NECK: Trachea midline. No JVD or lymphadenopathy. Supple, nontender, no meningeal signs. CARDIOVASCULAR: Regular rate and rhythm without murmurs, gallops, or rubs. RESPIRATORY: Clear to auscultation. Breath sounds equal bilaterally. No wheezes , rales, or rhonchi. GASTROINTESTINAL: Abdomen soft, obese, non-tender, nondistended. No hepato- splenomegaly, or palpable masses. No guarding. MUSCULOSKELETAL: Extremities without clubbing, cyanosis, or edema. No joint tenderness, effusion, or edema noted. No calf tenderness. Negative Homans sign bilaterally. NEUROLOGICAL: Awake. Doesn't follow any commands. Did not talk with me. Laboratory Laboratory Tests Test 10/24/16 10/24/16 11:50 12:10 White Blood Count 12.3 Red Blood Count 4.07 Hemoglobin 12.9 Hematocrit 38.0 Mean Corpuscular Volume 93.2 Mean Corpuscular Hemoglobin 31.8 Mean Corpuscular Hemoglobin 34.1 Concent Red Cell Distribution Width 13.4 Platelet Count 227 Mean Platelet Volume 9.9 Neutrophils (%) (Auto) 83.6 Lymphocytes (%) (Auto) 9.9 Monocytes (%) (Auto) 5.3 Eosinophils (%) (Auto) 0.5 Basophils (%) (Auto) 0.7 Neutrophils # (Auto) 10.3 Lymphocytes # (Auto) 1.2 Monocytes # (Auto) 0.7 Eosinophils # (Auto) 0.1 Basophils # (Auto) 0.1 CBC Comment DIFF FINAL Differential Comment Sodium Level 138 Potassium Level 4.1 Chloride Level 103 Carbon Dioxide Level 24.1 Anion Gap 11 Blood Urea Nitrogen 22 Creatinine 1.24 Estimat Glomerular Filtration 59 Rate Random Glucose 143 Calcium Level 9.7 Total Bilirubin 0.6 Aspartate Amino Transf 20 (AST/SGOT) Alanine Aminotransferase 38 (ALT/SGPT) Alkaline Phosphatase 72 Total Protein 8.2 Albumin 4.5 Salicylates Level 2.2 Acetaminophen Level LESS THAN 2.0 Ethyl Alcohol Level LESS THAN 3 Urine Color YELLOW Urine Turbidity CLEAR Urine pH 5.0 Urine Specific [place] 1.030 Urine Protein NEG Urine Glucose (UA) NEG Urine Ketones 10 Urine Occult Blood SMALL Urine Nitrite NEG Urine Bilirubin NEG Urine Urobilinogen LESS THAN 2.0 Urine Leukocyte Esterase NEG Urine RBC 20 Urine WBC 1 Urine Squamous Epithelial <1 Cells Urine Hyaline Casts 18 Urine Mucus FEW Microscopic Urinalysis Comment CULT NOT INDICATED Blood Gas Puncture Site LT RADIAL Blood Gas Patient Temperature 98.6 Blood Gas HCO3 22 Blood Gas Base Excess -1.9 Blood Gas Oxygen Saturation 92 Arterial Blood pH 7.40 Arterial Blood Partial 37 Pressure CO2 Arterial Blood Partial 75 Pressure O2 Arterial Blood Oxygen Content 18.3 Arterial Blood 1.7 Carboxyhemoglobin Arterial Blood Methemoglobin 2.0 Blood Gas Hemoglobin 14.2 Oxygen Delivery Device RA Urine Opiates Screen POS Urine Barbiturates Screen NEG Urine Amphetamines Screen NEG Urine Benzodiazepines Screen NEG Urine Cocaine Screen NEG Urine Cannabinoids Screen NEG Result Diagram: 10/24/16 1150 10/24/16 1150 Imaging Last Impressions Head CT 10/24/16 1153 Signed Impressions: Service Date/Time: Monday, October 24, 2016 13:05 - CONCLUSION: No acute disease. Enoc Medrano MD Chest X-Ray 10/24/16 1114 Signed Impressions: Service Date/Time: Monday, October 24, 2016 11:52 - CONCLUSION: No acute disease. Enoc Medrano MD Assessment and Plan Assessment and Plan Intoxication. Intentional overdose. History of major depression. Patient is obtunded but appears medically stable at time of exam. Patient is oxygenating well on room air. EKG NSR Ammonia capsules or use to try and stimulate the patient without significant response on arrival per Dr Godoy Patient is a question of some seizure like activity. Received 0.8 mg Narcan IV, as well as fosphenytoin thousand milligrams IV. CT of the brain is added as well. Consult neurology Dr. Monroy, the neurologist to discuss possible need for bedside EEG. Patient is alert and oriented after returning from CT scan per ER nurse. Patient admitted to the patient that last evening he wanted to kill himself by taking overdose of narcotics. Patient stated in the ED no pain or physical complaints.Patient is discussed with Dr. Barrera ED physician. Urinalysis is unremarkable. Urine tox screen is positive for benzodiazepines, salicylates at 2.2, and acetaminophen is 2.0. Ethyl alcohol is less than 3. Patient is Crooks acted based on his history and risk for self-harm. Psych consulted. Sitter at bedside Monitor on telemetry Order EEG Continue phosphenitoin 200 mg IV bid DVT ppx with lovenox. Discussed Condition With nurse, Dr Godoy form Carol Vincent MD Oct 24, 2016 16:19
[2016-10-24] MEDS: ENOXAPARIN SODIUM 40 MG/0.4 ML SYRINGE SQ SCH (17:17)
--- NOTE | 2016-10-24 17:17 | PD.CONS ---
HPI Service Critical Care Medicine Consult Requested By Primary Care Physician Non-Staff History of Present Illness 61-year-old male brought in by EMS with altered mental status. Patient reportedly was outside a local [employer] [place] on 10[place]24 and spoke to police at approximately 3 AM. At that time he stated he took his bipolar medications. He also reported that the patient drank almost a whole 12 ounce bottle of mouthwash and took at least 2 Lortabs. He now presents obtunded but stable. It is notable the patient was seen yesterday for psychiatric evaluation for his major depression and discharged from ER. Patient is currently nonverbal but oxygenating well. There is no sign of trauma on the patient. Patient has an allergy to ibuprofen. Patient received 0.8 narcan in the ED with some improvement in neuro status transiently. He did speak with the ED doctor thereafter, admitting he took pills, and mouth wash in suicidal attempt. Patient was initially seen by the hospitalist service however subsequently in view of increasing lethargy and EEG was ordered which revealed seizure activity for which she received Ativan 2 mg IV and was loaded with fosphenytoin IV. Critical care consult was requested by ER physician Dr. Barrera. I evaluated the patient immediately on being notified of the consult. At the time of my evaluation he was drowsy, arousable, not following commands. He had just received Ativan earlier. He had already been evaluated by neurology Dr. Monroy. History was obtained by reviewing records and discussion with ER physician. Patient will be admitted to the ICU in view of seizures noted on EEG. Per my discussion with Dr. Monroy, sharp waves on EEG improved after administration of Ativan IV earlier. Review of Systems Other As stated in HPI. Patient encephalopathic so review of systems unable to be obtained at the time of my evaluation Past Family Social History Past Medical History Depression/bipolar disorder Per records HTN, gout Past Surgical History Hernia repair Reported Medications Last Impressions Head CT 10/24/16 1153 Signed Impressions: Service Date/Time: Monday, October 24, 2016 13:05 - CONCLUSION: No acute disease. Enoc Medrano MD Chest X-Ray 10/24/16 1114 Signed Impressions: Service Date/Time: Monday, October 24, 2016 11:52 - CONCLUSION: No acute disease. Enoc Medrano MD Allergies: Uncoded Allergies: ibuprofen (Allergy, Severe, 04/26/12) Throat swelling Family History No family history per records Social History No h/o EtOH use, tobacco or illicit drug use. Past Family Social History Allergies: Uncoded Allergies: ibuprofen (Allergy, Severe, 04/26/12) Throat swelling Physical Exam Vital Signs Vital Signs Date Time Temp Pulse Resp B/P Pulse Ox O2 Delivery O2 Flow Rate FiO2 10/24/16 15:28 98 Nasal Cannula 2.00 10/24/16 13:00 96 16 181/84 98 2 10/24/16 12:00 101 24 141/84 98 Nasal Cannula 2 10/24/16 11:16 98 Nasal Cannula 2 10/24/16 11:16 98.6 101 15 131/67 10/24/16 11:16 98.8 96 15 131/67 97 Room Air Physical Exam GENERAL: This is a well-nourished, well-developed patient, in no apparent distress, currently drowsy though arousable. SKIN: No rashes, ecchymoses or lesions. Cool and dry. HEAD: Atraumatic. Normocephalic. No temporal or scalp tenderness. EYES: Pupils bilaterally constricted 2-3 mm, reactive. No pallor/ icterus. No injection or drainage. ENT: Nose without bleeding, purulent drainage or septal hematoma. Throat without erythema, tonsillar hypertrophy or exudate. Uvula midline. Airway patent. NECK: Trachea midline. No JVD or lymphadenopathy. Supple, nontender, no meningeal signs. CARDIOVASCULAR: Regular rate and rhythm without murmurs, gallops, or rubs. RESPIRATORY: Clear to auscultation. Breath sounds equal bilaterally. No wheezes , rales, or rhonchi. GASTROINTESTINAL: Abdomen soft, non-tender, nondistended. No hepato-splenomegaly , or palpable masses. No guarding. MUSCULOSKELETAL: Extremities without clubbing, cyanosis, or edema. No joint tenderness, effusion, or edema noted. No calf tenderness. Negative Homans sign bilaterally. NEUROLOGICAL: Encephalopathic/stuporose, response to painful stimuli, opens eyes however not following commands. Withdraws all 4 extremities to painful stimuli Laboratory Laboratory Tests Test 10/24/16 10/24/16 11:50 12:10 White Blood Count 12.3 Red Blood Count 4.07 Hemoglobin 12.9 Hematocrit 38.0 Mean Corpuscular Volume 93.2 Mean Corpuscular Hemoglobin 31.8 Mean Corpuscular Hemoglobin 34.1 Concent Red Cell Distribution Width 13.4 Platelet Count 227 Mean Platelet Volume 9.9 Neutrophils (%) (Auto) 83.6 Lymphocytes (%) (Auto) 9.9 Monocytes (%) (Auto) 5.3 Eosinophils (%) (Auto) 0.5 Basophils (%) (Auto) 0.7 Neutrophils # (Auto) 10.3 Lymphocytes # (Auto) 1.2 Monocytes # (Auto) 0.7 Eosinophils # (Auto) 0.1 Basophils # (Auto) 0.1 CBC Comment DIFF FINAL Differential Comment Sodium Level 138 Potassium Level 4.1 Chloride Level 103 Carbon Dioxide Level 24.1 Anion Gap 11 Blood Urea Nitrogen 22 Creatinine 1.24 Estimat Glomerular Filtration 59 Rate Random Glucose 143 Calcium Level 9.7 Total Bilirubin 0.6 Aspartate Amino Transf 20 (AST/SGOT) Alanine Aminotransferase 38 (ALT/SGPT) Alkaline Phosphatase 72 Total Protein 8.2 Albumin 4.5 Salicylates Level 2.2 Acetaminophen Level LESS THAN 2.0 Ethyl Alcohol Level LESS THAN 3 Urine Color YELLOW Urine Turbidity CLEAR Urine pH 5.0 Urine Specific [place] 1.030 Urine Protein NEG Urine Glucose (UA) NEG Urine Ketones 10 Urine Occult Blood SMALL Urine Nitrite NEG Urine Bilirubin NEG Urine Urobilinogen LESS THAN 2.0 Urine Leukocyte Esterase NEG Urine RBC 20 Urine WBC 1 Urine Squamous Epithelial <1 Cells Urine Hyaline Casts 18 Urine Mucus FEW Microscopic Urinalysis Comment CULT NOT INDICATED Blood Gas Puncture Site LT RADIAL Blood Gas Patient Temperature 98.6 Blood Gas HCO3 22 Blood Gas Base Excess -1.9 Blood Gas Oxygen Saturation 92 Arterial Blood pH 7.40 Arterial Blood Partial 37 Pressure CO2 Arterial Blood Partial 75 Pressure O2 Arterial Blood Oxygen Content 18.3 Arterial Blood 1.7 Carboxyhemoglobin Arterial Blood Methemoglobin 2.0 Blood Gas Hemoglobin 14.2 Oxygen Delivery Device RA Urine Opiates Screen POS Urine Barbiturates Screen NEG Urine Amphetamines Screen NEG Urine Benzodiazepines Screen NEG Urine Cocaine Screen NEG Urine Cannabinoids Screen NEG Result Diagram: 10/24/16 1150 10/24/16 1150 Imaging Last Impressions Head CT 10/24/16 1153 Signed Impressions: Service Date/Time: Monday, October 24, 2016 13:05 - CONCLUSION: No acute disease. Enoc Medrano MD Chest X-Ray 10/24/16 1114 Signed Impressions: Service Date/Time: Monday, October 24, 2016 11:52 - CONCLUSION: No acute disease. Enoc Medrano MD Assessment and Plan Assessment and Plan 61-year-old male with: Intentional suicidal overdose with mouthwash/narcotics/antidepressant/bipolar meds Encephalopathy Seizure History of depression Plan: Neuro: Loaded with fosphenytoin which will be continued. Received Ativan/ Fosphenytoin earlier for seizures noted on EEG. Neurology consult requested and patient has already been evaluated by Dr. Monroy. Plan to continue Fosphenytoin. [place] acted per ER. Consult psychiatry in view of intentional suicidal overdose. Cardiovascular: IV hydration, watch for hypotension Pulmonary: Supplemental O2 as needed. If neuro status declines further, may require intubation for airway protection. GI/liver: Nothing by mouth for now. Renal/: IV hydration, monitor and replete electro lites, follow BUN/creatinine , follow urine output. Endocrine: Watch for hyperglycemia, SSI for glycemic control if needed Prophylaxis: SCDs, Lovenox for DVT prophylaxis Time spent on critical care excluding procedures 40 minutes Yvon Bedoya MD Oct 24, 2016 17:17
[2016-10-24] MEDS: SODIUM CHLORIDE 0.9% FLUSH 5 ML FLUSH FLUSH SCH (21:00)
[2016-10-24] MEDS: FOSPHENYTOIN SODIUM 100 MG PE/2 ML VIAL IV SCH (21:01)
--- NOTE | 2016-10-24 21:37 | MG ---
cc: STEFAN ALVARENGA MD Sex: M DATE OF STUDY: 10/24/2016 DATE OF : 1955 HISTORY: The patient is a 61 year-old with history of mental status changes. DESCRIPTION: Status epilepticus, sharp discharges most prominent bilateral frontal central region, 20 to 70 microvolts, underlying 2-3 Hz delta activity with inter ictal theta beta frequencies. The patient was given 2 mg of Ativan which resulted in cessation of sharp discharges and increased beta frequencies. Single lead EKG showing sinus rhythm. ER physician and neurologist were notified by the tech of the EEG findings. INTERPRETATION Status epilepticus pattern followed by abrupt cessation and seizure activity after the administration of IV Ativan. Clinical correlation. Stefan Alvarenga MD MG/DIDI /8:37 PM /9:32 PM
[2016-10-25] VITALS (14 sets, daily range): BP systolic 121–138; BP diastolic 61–89; PULSE 73–106; RESP 18–21; TEMP 97.9–98.4; O2SAT 96–98
[2016-10-25 05:43] LABS: AUTOMATED NEUTROPHIL # 5.6 TH/MM3 (1.8-7.7); BASOPHIL % 0.4 % (0.0-2.0); EOSINOPHIL # 0.1 TH/MM3 (0-0.4); EOSINOPHIL % 1.1 % (0.0-4.0); HEMATOCRIT 41.2 % (39.0-51.0); HEMO FLAGS DIFF FINAL; LYMPH % 25.4 % (9.0-44.0); LYMPHOCYTE # 2.2 TH/MM3 (1.0-4.8); MEAN CELL VOLUME 94.4 FL (80.0-100.0); MEAN CORPUSCULAR HEMOGLOBIN 31.8 PG (27.0-34.0); MEAN CORPUSCULAR HGB CONC 33.7 % (32.0-36.0); MONO % 7.2 % (0.0-8.0); NEUT % 65.9 % (16.0-70.0); PLATELET COUNT 216 TH/MM3 (150-450); RED BLOOD COUNT 4.36 MIL/MM3 (4.50-5.90); RED CELL DISTRIBUTION WIDTH 13.6 % (11.6-17.2); WHITE BLOOD COUNT 8.6 TH/MM3 (4.0-11.0)
[2016-10-25 06:10] LABS: BICARBONATE 28.3 MEQ/L (21.0-32.0); POTASSIUM 4.1 MEQ/L (3.5-5.1)
[2016-10-25] MEDS: FOSPHENYTOIN SODIUM 100 MG PE/2 ML VIAL IV SCH ×2 (08:00→20:45)
[2016-10-25] MEDS: SODIUM CHLORIDE 0.9% FLUSH 5 ML FLUSH FLUSH SCH ×2 (09:00→20:46)
--- NOTE | 2016-10-25 09:45 | MB ---
cc: YAZAN GEE MD DATE OF CONSULTATION 10/24/2016 REASON FOR CONSULTATION Altered mental status. HISTORY OF PRESENT ILLNESS During the encounter the patient was unresponsive status 2 mg Ativan given, hence the history is obtained from the medical record and from the emergency room physician. A 61-year-old male brought by the EMS with altered mental status. The patient was reportedly outside out of a local [employer] early this morning and spoke to the police at approximately 03:00 a.m. At that time he states he took his bipolar medications and now it is reported that the patient drank almost a whole 12 ounce bottle of mouthwash and took at least two Lortab tablets. He presented to the ER room obtunded, but was hemodynamically stable. The patient was seen yesterday for a psychiatric evaluation for his major depression. During the encounter the patient is nonverbal, does not respond neither to verbal or painful stimulation. Neck is supple. Pupils are 2 mm equal bilateral reacting to light. No signs of meningeal irritation. No gaze deviation. No signs of head trauma. Head CT scan was done emergently and it was reported with an impression of no acute intracranial abnormality. REVIEW OF SYSTEMS Unable to obtain. PAST MEDICAL HISTORY Unable to obtain but from the medical records: 1. Bipolar disorder. 2. Depression. 3. Cardiovascular problems. 4. Hyperlipidemia. 5. Gout. 6. Hypertension. PAST SURGICAL HISTORY Unable to obtain but from medical records hernia repair. SOCIAL HISTORY Unable to obtain but according to records no alcohol use. No tobacco use and he had denied the use of polysubstance. ALLERGIES UNABLE TO OBTAIN, FROM MEDICAL RECORDS IT IS IBUPROFEN. MEDICATIONS 1. Lisinopril. 2. Valium. 3. Celexa. 4. Allopurinol. FAMILY HISTORY Unable to obtain. PHYSICAL EXAMINATION HEENT: The patient is nonverbal with no signs of trauma to the head. No signs of meningeal irritation. Pupils are 2 mm bilateral equal and reacting. No gaze deviation is noted. No facial asymmetry is noted. Reflexes are 1+ throughout. Plantars are bilateral upgoing. Head is atraumatic, normocephalic. NECK: Trachea in the midline. No carotid bruits. Neck is supple. CARDIOVASCULAR: Regular rate and rhythm. No murmurs. RESPIRATORY: Clear to auscultation. No wheezes. MUSCULOSKELETAL: Cannot be assessed for motor function but there is no cyanosis, clubbing or bruises. NEUROLOGICAL: The patient is nonverbal, unarousable. Does respond neither to verbal or painful commands. No signs of meningeal irritation. Pupils 2 mm reacting to light. No gaze deviation. Reflexes 1+ bilateral symmetrical throughout. Plantars are bilateral upgoing. LABORATORY DATA White blood cells 4.3, hemoglobin 12.9, platelet count 227. Sodium 138, potassium 4.1, chloride 103, anion gap 11, blood urea nitrogen 22, creatinine 1.24, calcium 9.7, random glucose 143. total protein 8.2, albumin 4.5. Salicylate level 2.2. Acetaminophen level less than 2. Ethyl alcohol level less than 3.Urine tox is positive for opiates. IMAGING Diagnostic imaging - Head CT scan without contrast with no intracranial abnormality. DIAGNOSTIC IMPRESSION - Encephalopathy. Possible etiology is metabolic / nonconvulsive status/ medication overdose. - As per the emergency room physician, the patient was more responsive earlier after he received Narcan, however, they consulted me and I recommended an EEG to be done to rule out a nonconvulsive status. There was a mention in the notes that there is some seizure-like activity. An EEG ordered. - I reviewed the EEG that showed periods of nonconvulsive status, bilateral symmetrical spike and wave activity. - The patient was given Ativan and the abnormal brain wave activity subsided in the EEG, however, the patient was noted during the encounter that after the electrical activity had subsided he had infrequent myoclonic activity in his arms and legs. - I talked to Dr. Barrera the ED physician and I recommend loading dose of Dilantin 50 mg per kg and a maintenance dose of 100 mg three times daily to be admitted in the ICU. PLAN 1. Neuro checks q. one hourly. 2. Dilantin 100 mg three times daily. 3. Check Dilantin level next a.m. 4. DVT prophylaxis SCDs. 5. GI prophylaxis. Thank you for the opportunity to participate in the care of your patient. MD VIRA Zamudio/KK /4:06 PM /9:35 AM [facility] MED[facility] CENTERMinisterio
--- NOTE | 2016-10-25 12:45 | HHI.CCPN ---
Subjective Remarks/Hospital Course 10/24: 61-year-old male brought in by EMS with altered mental status. Patient reportedly was outside a local [employer] morning on 10/24 and spoke to police at approximately 3 AM. At that time he stated he took his bipolar medications. He also reported that the patient drank almost a whole 12 ounce bottle of mouthwash and took at least 2 Lortabs. He now presents obtunded but stable. It is notable the patient was seen yesterday for psychiatric evaluation for his major depression and discharged from ER. Patient is currently nonverbal but oxygenating well. There is no sign of trauma on the patient. Patient has an allergy to ibuprofen. Patient received 0.8 narcan in the ED with some improvement in neuro status transiently. He did speak with the ED doctor thereafter, admitting he took pills, and mouth wash in suicidal attempt. Patient was initially seen by the hospitalist service however subsequently in view of increasing lethargy and EEG was ordered which revealed seizure activity for which she received Ativan 2 mg IV and was loaded with fosphenytoin IV. Critical care consult was requested by ER physician Dr. Barrera. I evaluated the patient immediately on being notified of the consult. At the time of my evaluation he was drowsy, arousable, not following commands. He had just received Ativan earlier. He had already been evaluated by neurology Dr. Monroy. History was obtained by reviewing records and discussion with ER physician. Patient will be admitted to the ICU in view of seizures noted on EEG. Per my discussion with Dr. Monroy, sharp waves on EEG improved after administration of Ativan IV earlier. 10/25: More awake today. Knows he is at the hospital. Following commands. No witnessed seizures overnight per RN. Objective Vital Signs Date Time Temp Pulse Resp B/P Pulse Ox O2 Delivery O2 Flow Rate FiO2 10/25/16 10:00 76 10/25/16 08:28 97 Nasal Cannula 2.00 10/25/16 08:00 98.0 20 134/89 Intake and Output 10/24/16 10/24/16 10/25/16 08:00 16:00 00:00 Intake Total 103 ml Output Total 200 ml 0 ml Balance -200 ml 103 ml Result Diagram: 10/25/16 0425 10/25/16 0425 Imaging Last Impressions Head CT 10/24/16 1153 Signed Impressions: Service Date/Time: Monday, October 24, 2016 13:05 - CONCLUSION: No acute disease. Enoc Medrano MD Chest X-Ray 10/24/16 1114 Signed Impressions: Service Date/Time: Monday, October 24, 2016 11:52 - CONCLUSION: No acute disease. Enoc Medrano MD Objective Remarks GENERAL: This is a well-nourished, well-developed patient, in no apparent distress, currently drowsy though easily arousable. SKIN: No rashes, ecchymoses or lesions. Cool and dry. HEAD: Atraumatic. Normocephalic. No temporal or scalp tenderness. EYES: Pupils bilaterally constricted 2-3 mm, reactive. No pallor/ icterus. No injection or drainage. ENT: Nose without bleeding, purulent drainage or septal hematoma. Throat without erythema, tonsillar hypertrophy or exudate. Uvula midline. Airway patent. NECK: Trachea midline. No JVD or lymphadenopathy. Supple, nontender, no meningeal signs. CARDIOVASCULAR: Regular rate and rhythm without murmurs, gallops, or rubs. RESPIRATORY: Clear to auscultation. Breath sounds equal bilaterally. No wheezes , rales, or rhonchi. GASTROINTESTINAL: Abdomen soft, non-tender, nondistended. No hepato-splenomegaly , or palpable masses. No guarding. MUSCULOSKELETAL: Extremities without clubbing, cyanosis, or edema. No joint tenderness, effusion, or edema noted. No calf tenderness. NEUROLOGICAL: Drowsy, easily arousable, moving all 4 extremities, following commands. Knows he is at the hospital knows it is 2016. A/P Assessment and Plan 61-year-old male with: Intentional suicidal overdose with mouthwash/narcotics/antidepressant/bipolar meds Encephalopathy Seizure History of depression Plan: Neuro: Received Ativan/ Fosphenytoin for seizures noted on EEG in ER. Neurology consult requested and patient has already been evaluated by Dr. Monroy. Plan to continue Fosphenytoin. Awaiting psychiatry eval in view of intentional suicidal overdose. Cardiovascular: IV hydration, watch for hypotension Pulmonary: Supplemental O2 as needed. Wean off oxygen as tolerated GI/liver: Advance by mouth diet Renal/: IV hydration, monitor and replete electro lites, follow BUN/creatinine , follow urine output. Endocrine: Watch for hyperglycemia, SSI for glycemic control if needed Prophylaxis: SCDs, Lovenox for DVT prophylaxis Awaiting psychiatric evaluation. Discussed with Dr. Birmingham - patient will be transferred to hospitalist service for further medical management. Critical care will be signing off at this time , please reconsult if needed Yvon Bedoya MD Oct 25, 2016 12:45
[2016-10-25] MEDS: oxyCODONE/ACETAMINOPHEN 10 MG/325 MG TAB PO PRN ×2 (13:21→18:14)
--- NOTE | 2016-10-25 15:40 | PD.CONS ---
Provisional Diagnosis Admission Date Oct 24, 2016 at 18:30 Palmer I. Major depressive disorder, recurrent, moderate without psychosis History of Present Illness Service Psychiatry Consult Requested By Primary Care Physician Non-Staff HPI The patient is a 61-year-old man, domiciled with roommate, unemployed , on SSI, with psychiatric history of depression, 1 previous hospitalization, known by this service, no previous suicide attempts, he is in outpatient psychiatric care with Dr. Benedict, medical history of gout and hypertension,who was brought in by EMS with altered mental status. as per ER note "Patient reportedly was outside a local [employer] morning on 10/24 and spoke to police at approximately 3 AM. At that time he stated he took his bipolar medications. He also reported that the patient drank almost a whole 12 ounce bottle of mouthwash and took at least 2 Lortabs". Patient was seen yesterday in the [facility] by Dr. Castelan due to depressive symptoms and was psychiatrically clear with recommendations to continue his outpatient psychiatric care with . On psychiatric evaluation today patient was seen in the ICU, he was calm and cooperative, patient states that he has never said that he tried to commit suicide, he is a very spiritual person, he loves life and even though he has been sad after the of his last July, he doesn't have any suicidal ideation. Patient says that he was walking in the street with his mouth watch bottle "because I am always concerned about the smell of my mouth and not because I wanted to drink". Patient says that he paces regularly as prescribed medically Xanax and opiates for pain. He takes 2 mg of Xanax twice a day. At this moment the patient denies depressive symptoms, denies anxiety, denies patricia , denies perceptual disturbances. Patient is future oriented, he says that he wants to move very soon to a private room in front of his house where he lives now with a roommate. Patient denies the use of illicit drugs and also denies the use of alcohol. Review of Systems Constitutional: DENIES: Diaphoretic episodes, Fatigue, Fever, Weight gain, Weight loss, Chills, Dizziness, Change in appetite, Night Sweats Endocrine: DENIES: Heat/cold intolerance, Polydipsia, Polyuria, Polyphagia Eyes: DENIES: Blurred vision, Diplopia, Eye inflammation, Eye pain, Vision loss , Photosensitivity, Double Vision Ears, nose, mouth, throat: DENIES: Tinnitus, Hearing loss, Vertigo, Nasal discharge, Oral lesions, Throat pain, Hoarseness, Ear Pain, Running Nose, Epistaxis, Sinus Pain, Toothache, Odynophagia Respiratory: DENIES: Apneas, Cough, Snoring, Wheezing, Hemoptysis, Sputum production, Shortness of breath Cardiovascular: DENIES: Chest pain, Palpitations, Syncope, Dyspnea on Exertion , PND, Lower Extremity Edema, Orthopnea, Claudication Genitourinary: DENIES: Sexual dysfunction, Urinary frequency, Urinary incontinence, Urgency, Hematuria, Dysuria, Nocturia, Penile Discharge, Testicular Pain, Testicular Swelling Musculoskeletal: DENIES: Joint pain, Muscle aches, Stiffness, Joint Swelling, Back pain, Neck pain Integumentary: DENIES: Abnormal pigmentation, Nail changes, Pruritus, Rash Hematologic/lymphatic: DENIES: Bruising, Lymphadenopathy Immunologic/allergic: DENIES: Eczema, Urticaria Neurologic: DENIES: Abnormal gait, Headache, Localized weakness, Paresthesias, Seizures, Speech Problems, Tremor, Poor Balance Psychiatric: DENIES: Anxiety, Confusion, Mood changes, Depression, Hallucinations, Agitation, Suicidal Ideation, Homicidal Ideation, Delusions Past Family Social History Uncoded Allergies: ibuprofen (Allergy, Severe, 04/26/12) Throat swelling prevastatin (Adverse Reaction, Severe, 10/25/16) pt reports med built up in sytem causing severe muscle aches Reported Medications Lisinopril 20 Mg Tab20 Mg PO BID #30 TAB Ref 0 10/24/16 Diazepam (Valium)5 Mg Tab5 Mg PO TID Ref 0 10/24/16 Citalopram (Celexa)20 Mg Tab20 Mg PO DAILY #30 TAB Ref 0 10/24/16 Allopurinol 300 Mg [id number] Mg PO DAILY #30 TAB Ref 0 10/24/16 Current Medications Medications (Trade) Dose Ordered Sig/Te Route Start Time Stop Time Status Last Admin (NS Flush) 2 ml UNSCH PRN IVF 10/24/16 11:15 10/24/16 12:21 (NS Flush) 2 ml UNSCH PRN FLUSH 10/24/16 14:45 (NS Flush) 2 ml BID FLUSH 10/24/16 21:00 10/25/16 09:00 (Tylenol) 650 mg Q4H PRN PO 10/24/16 14:45 (Zofran Inj) 4 mg Q6H PRN IVP 10/24/16 14:45 (Compazine Supp) 25 mg Q12H PRN OH 10/24/16 14:45 (Dulcolax Supp) 10 mg DAILY PRN OH 10/24/16 14:45 (Milk Of Magnesia Liq) 30 ml Q12H PRN PO 10/24/16 14:45 (Senokot) 17.2 mg Q12H PRN PO 10/24/16 14:45 (Lovenox Inj) 40 mg Q24H SQ 10/24/16 16:00 10/24/16 17:17 (Cerebyx Inj) 200 mgpe Q12HR IV 10/24/16 21:00 10/25/16 08:00 (Percocet 10-325 Mg) 1 tab Q6H PRN PO 10/25/16 13:00 10/25/16 13:21 Family History He denies Social History Patient was born and raised in [place], he has been living in [facility], he is , he lives with a roommate in [place], he is unemployed, supported by [employer], his highest level of education is 10th grade Physical Exam Vital Signs Vital Signs Date Time Temp Pulse Resp B/P Pulse Ox O2 Delivery O2 Flow Rate FiO2 10/25/16 14:21 18 10/25/16 14:00 76 10/25/16 12:00 98.0 138/78 97 10/25/16 08:28 Nasal Cannula 2.00 I/O 10/24/16 10/24/16 10/25/16 08:00 16:00 00:00 Intake Total 103 ml Output Total 200 ml 0 ml Balance -200 ml 103 ml Mental Status Examination Appearance Overweight man, edentulous, age appearing, calm and, cooperative Speech: Unremarkable Orientation: x3 Memory: Unremarkable Thought Process: Logical Thought Content: Unremarkable Hallucination Type: None Suicidal Ideation: No Previous Suicide Attempts: Yes Homicidal Ideation: No Previous Homicide Attempts: No Insight: Fair Affect: Good Mood: Euthymic Motor Activity: Normal gait Assessment & Plan Problem List: (1) Adjustment disorder with depressed mood Assessment & Plan: On psychiatric evaluation today patient is found calm and cooperative, his thought process is logical, coherent and relevant, at times is Circumstantial, but redirectable. He reports sadness related with the recent of his last July, but he says that is an "injury that is already healing"he denies depressive symptoms, he denies anxiety, he denies patricia, he denies psychosis. No paranoia, delusions, aggressive behavior, agitation, gross cognitive impairment is observed. Patient denies suicidal and homicidal ideation, he denies visual and auditory hallucinations. Patient is psychiatrically stable to continue his outpatient care with . Extensive support, motivation psycho education provided. Crooks act will be lifted, ICD Code: F43.21 Assessment & Plan Estimated LOS: Price Alvarez MD Oct 25, 2016 15:40
[2016-10-25] MEDS: ENOXAPARIN SODIUM 40 MG/0.4 ML SYRINGE SQ SCH (16:00)
--- NOTE | 2016-10-25 17:17 | HHI.PR ---
Review/Management Diagnosis Encephalopathy Likely etiology is metabolic /nonconvulsive status/ medication overdose. EEG with evidence of electrographic seizures/status epilepticus Plan - Neuro checks q. one hourly. - Dilantin 200 mg Q12h - Check Dilantin level next a.m. - DVT prophylaxis SCDs. - GI prophylaxis - Psychiatry recommendation is appreciated. Diagnosis/Plan: Subjective Subjective Comments No acute events reported Patient is awake, aware, back to his normal cognitive and motor baseline Able to swallow Complains of sleeping difficulty Dilantin level is subtherapeutic 8.8 Active Medications Current Medications Medications (Trade) Dose Ordered Sig/Te Route Start Time Stop Time Status Last Admin (NS Flush) 2 ml UNSCH PRN FLUSH 10/24/16 14:45 (NS Flush) 2 ml BID FLUSH 10/24/16 21:00 10/25/16 09:00 (Tylenol) 650 mg Q4H PRN PO 10/24/16 14:45 (Zofran Inj) 4 mg Q6H PRN IVP 10/24/16 14:45 (Compazine Supp) 25 mg Q12H PRN MT 10/24/16 14:45 (Dulcolax Supp) 10 mg DAILY PRN MT 10/24/16 14:45 (Milk Of Magnesia Liq) 30 ml Q12H PRN PO 10/24/16 14:45 (Senokot) 17.2 mg Q12H PRN PO 10/24/16 14:45 (Lovenox Inj) 40 mg Q24H SQ 10/24/16 16:00 10/24/16 17:17 (Cerebyx Inj) 200 mgpe Q12HR IV 10/24/16 21:00 10/25/16 08:00 (Percocet 10-325 Mg) 1 tab Q6H PRN PO 10/25/16 13:00 10/25/16 13:21 (Desyrel) 100 mg HS PO 10/25/16 21:00 Allergies Allergies Uncoded Allergies ibuprofen ( Allergy, Severe, 04/26/12) prevastatin ( Adverse Reaction, Severe, 10/25/16) Exam I&O / VS 10/24/16 10/24/16 10/25/16 15:00 23:00 07:00 Intake Total 103 ml 36 ml Output Total 200 ml 0 ml 475 ml Balance -200 ml 103 ml -439 ml Intake Oral 50 ml IV Total 53 ml 36 ml Output Urine Total 200 ml 0 ml 475 ml Stool Total 0 ml 0 ml # Voids 1 0 # Bowel Movements 0 0 Vital Signs Date Time Temp Pulse Resp B/P Pulse Ox O2 Delivery O2 Flow Rate FiO2 10/25/16 16:00 76 10/25/16 16:00 97.9 89 18 126/62 98 10/25/16 14:21 18 10/25/16 14:00 76 10/25/16 12:00 98.0 106 20 138/78 97 10/25/16 12:00 82 10/25/16 10:00 76 10/25/16 08:28 97 Nasal Cannula 2.00 10/25/16 08:00 82 10/25/16 08:00 98.0 82 20 134/89 97 10/25/16 06:00 76 10/25/16 04:00 98.1 91 21 136/67 97 10/25/16 04:00 91 10/25/16 02:00 78 10/25/16 00:00 98.4 75 19 121/61 96 10/25/16 00:00 75 10/24/16 22:00 70 10/24/16 20:22 98.2 78 20 148/66 99 General: Alert and Oriented, No acute distress Eye: PERRL, EOMI, Normal conjuctiva Respiratory: Lungs CTA, Non-labored respirations Cardiology: Normal rate, No murmur Musculoskeletal: ROM Neurologic: Alert, Oriented, Normal sensory, Normal motor, No focal defects, CN II-XII intact Psychiatric: Cooperative, Appropriate mood & affect Objective Micro and Labs Laboratory Tests Test 10/24/16 10/25/16 20:15 04:25 Nasal Screen MRSA (PCR) NEGATIVE White Blood Count 8.6 Red Blood Count 4.36 Hemoglobin 13.9 Hematocrit 41.2 Mean Corpuscular Volume 94.4 Mean Corpuscular Hemoglobin 31.8 Mean Corpuscular Hemoglobin 33.7 Concent Red Cell Distribution Width 13.6 Platelet Count 216 Mean Platelet Volume 10.2 Neutrophils (%) (Auto) 65.9 Lymphocytes (%) (Auto) 25.4 Monocytes (%) (Auto) 7.2 Eosinophils (%) (Auto) 1.1 Basophils (%) (Auto) 0.4 Neutrophils # (Auto) 5.6 Lymphocytes # (Auto) 2.2 Monocytes # (Auto) 0.6 Eosinophils # (Auto) 0.1 Basophils # (Auto) 0.0 CBC Comment DIFF FINAL Differential Comment Sodium Level 138 Potassium Level 4.1 Chloride Level 101 Carbon Dioxide Level 28.3 Anion Gap 9 Blood Urea Nitrogen 18 Creatinine 0.86 Estimat Glomerular Filtration 90 Rate Random Glucose 93 Calcium Level 9.2 Phenytoin (Dilantin) Level 8.8 Herlinda Monroy MD Oct 25, 2016 17:17
--- NOTE | 2016-10-25 20:48 | EKG ---
Date Performed: 10/24/2016 Time Performed: 11:45:09 PTAGE: 61 years EKG: Sinus rhythm NORMAL ECG PREVIOUS TRACING : 03/26/2013 23.12 Compared to prior tracing no significant change DOCTOR: Rocky Elmore Interpretating Date/Time 10/25/2016 20:47:10
[2016-10-25] MEDS ORDERED: traZODone HCL 100 MG TAB PO SCH (21:00)
[2016-10-26] VITALS (7 sets, daily range): BP systolic 136–155; BP diastolic 73–93; PULSE 69–90; RESP 17–19; TEMP 97.8–98.6; O2SAT 96
[2016-10-26] MEDS: oxyCODONE/ACETAMINOPHEN 10 MG/325 MG TAB PO PRN (05:03)
--- NOTE | 2016-10-26 08:00 | HHI.PYPN ---
Subjective Remarks Patient was seen today for reevaluation, as per request of Dr. Madrid, patient last night he wrote in a piece of paper that he would like to Bullet, even though he doesn't specify for what. Today patient seems to be ambivalent about suicidal ideation, he says that what he meant was that at the time of his he would prefer a bullet in his head that is suffering . Patient seems to be today oddly related, kind of nebulous, tangential, with flat affect, may be internally preoccupied. He denies suicidal or homicidal ideation, he denies visual and auditory hallucinations, patient is partially oriented. As per conversation with Dr. Madrid patient is ready to be transferred to regular medical floor under the care of . Patient was re-manriquez acted. Patient might benefit of psychiatric admission, could be a candidate for the med/psy. Review of Systems Hematologic/lymphatic: COMPLAINS OF: Bruising Immunologic/allergic: COMPLAINS OF: Eczema Neurologic: COMPLAINS OF: Abnormal gait, DENIES: Headache, Localized weakness , Paresthesias, Seizures, Speech Problems, Tremor, Poor Balance Psychiatric: COMPLAINS OF: Anxiety Other No significant changes seen 10/25/2016 Objective Alert: Yes Merrill: Person, Place, Date (partially) Mood: Calm Affect: Flat Memory Intact: Immediate, Recent Hallucinations: Other (he denies) Delusions: No Delusion Type: Other (none) Suicidal: Ideation (he denies) Homicidal: Ideation (he denies) Insight/Judgement Poor Labs Test 10/26/16 04:07 Phenytoin (Dilantin) Level 8.7 MCG/ML Vitals/IOs Vital Signs Date Time Temp Pulse Resp B/P Pulse Ox O2 Delivery O2 Flow Rate FiO2 10/26/16 06:09 20 10/26/16 06:00 90 10/26/16 04:00 97.8 155/93 96 10/25/16 20:48 Nasal Cannula 2.00 Intake and Output 10/25/16 10/25/16 10/26/16 08:00 16:00 00:00 Intake Total 36 ml 580 ml Output Total 475 ml 500 ml 350 ml Balance -439 ml 80 ml -350 ml Assessment & Plan Problem List: (1) Adjustment disorder with depressed mood Assessment & Plan: Patient was seen today, as per Dr.Nemini request, he was re- Daksha acted due to suicidal statements. On reevaluation today patient seems to be kind of he related, tangential, ambivalent about SI. He would need a closer monitoring of behavior, thought processes and mood. I can follow-up the patient in the floor, or if Ok with Dr. Birmingham and and a bed is available, could be transfer to Med/psy unit. ICD Code: F43.21 Assessment & Plan Estimated LOS: days Justification for Cont. Inpt. Patient was Re-daksha acted by Dr. Madrid due to suicidal statement. Price Alvarez MD Oct 26, 2016 08:00
--- NOTE | 2016-10-26 08:01 | HHI.PR ---
Subjective Remarks Per nurse, patient was asking for a bullet in the morning. Will BA. Seen by Dr Alvarez psych, plan to DC to inpatient psych Patient is in the chair, appears in nad. No seizures. No headache, He feels weak , but able to ambulate. No n/v/d/c. Objective Vitals Vital Signs Date Time Temp Pulse Resp B/P Pulse Ox O2 Delivery O2 Flow Rate FiO2 10/26/16 06:09 20 10/26/16 06:00 90 10/26/16 05:30 90 10/26/16 04:00 97.8 73 17 155/93 96 10/26/16 04:00 73 10/26/16 02:00 69 10/26/16 00:00 98.6 74 19 136/73 96 10/26/16 00:00 74 10/25/16 22:00 73 10/25/16 20:48 98 Nasal Cannula 2.00 10/25/16 20:00 82 10/25/16 20:00 98.3 82 20 128/64 96 10/25/16 18:00 76 10/25/16 16:00 76 10/25/16 16:00 97.9 89 18 126/62 98 10/25/16 14:00 76 10/25/16 12:00 98.0 106 20 138/78 97 10/25/16 12:00 82 10/25/16 10:00 76 10/25/16 08:28 97 Nasal Cannula 2.00 I/O 10/25/16 10/25/16 10/25/16 10/26/16 10/26/16 10/26/16 07:00 15:00 23:00 07:00 15:00 23:00 Intake Total 36 ml 580 ml 600 ml Output Total 475 ml 500 ml 350 ml 1200 ml Balance -439 ml 80 ml -350 ml -600 ml Intake Oral 480 ml 600 ml IV Total 36 ml 100 ml Output Urine Total 475 ml 500 ml 350 ml 1200 ml Stool Total 0 ml # Voids 1 # Bowel Movements 0 1 Result Diagram: 10/25/16 0425 10/25/16 0425 Imaging Last Impressions Head CT 10/24/16 1153 Signed Impressions: Service Date/Time: Monday, October 24, 2016 13:05 - CONCLUSION: No acute disease. Enoc Medrano MD Chest X-Ray 10/24/16 1114 Signed Impressions: Service Date/Time: Monday, October 24, 2016 11:52 - CONCLUSION: No acute disease. Enoc Medrano MD Objective Remarks GENERAL: This is a well-nourished, well-developed patient, in no apparent distress, currently drowsy though easily arousable. SKIN: No rashes, ecchymoses or lesions. Cool and dry. HEAD: Atraumatic. Normocephalic. No temporal or scalp tenderness. EYES: Pupils bilaterally constricted 2-3 mm, reactive. No pallor/ icterus. No injection or drainage. ENT: Nose without bleeding, purulent drainage or septal hematoma. Throat without erythema, tonsillar hypertrophy or exudate. Uvula midline. Airway patent. NECK: Trachea midline. No JVD or lymphadenopathy. Supple, nontender, no meningeal signs. CARDIOVASCULAR: Regular rate and rhythm without murmurs, gallops, or rubs. RESPIRATORY: Clear to auscultation. Breath sounds equal bilaterally. No wheezes , rales, or rhonchi. GASTROINTESTINAL: Abdomen soft, non-tender, nondistended. No hepato-splenomegaly , or palpable masses. No guarding. MUSCULOSKELETAL: Extremities without clubbing, cyanosis, or edema. No joint tenderness, effusion, or edema noted. No calf tenderness. NEUROLOGICAL: Drowsy, easily arousable, moving all 4 extremities, following commands. Knows he is at the hospital knows it is 2017. A/P Assessment and Plan 61-year-old male with: Intentional suicidal overdose with mouthwash/narcotics/antidepressant/bipolar meds Encephalopathy Seizure History of depression Plan: Neuro: Received Ativan/ Fosphenytoin for seizures noted on EEG in ER. Neurology consult requested and patient has already been evaluated by Dr. Monroy. DC Fosphenytoin IV . Start dilantin 100 mg po TID per Dr Monroy. Awaiting psychiatry eval in view of intentional suicidal overdose. Cardiovascular: IV hydration, watch for hypotension Pulmonary: Supplemental O2 as needed. Wean off oxygen as tolerated GI/liver: Advance by mouth diet Renal/: IV hydration, monitor and replete electro lites, follow BUN/creatinine , follow urine output. Endocrine: Watch for hyperglycemia, SSI for glycemic control if needed Prophylaxis: SCDs, Lovenox for DVT prophylaxis Medically stable and cleared for DC Psychiatric evaluation, will admit inpatient psych per Dr Alvarez. Discussed with Dr Monroy neurology. Switch to dilantin 100 mg po tid and repeat level of dilantin in the morning. Patient to follow up with neuro as OP. Medically cleared for DC to med /psych Carol Birmingham MD Oct 26, 2016 08:01
--- NOTE | 2016-10-26 08:45 | HHI.DCPOC ---
Discharge Care Plan Goals to Promote Your Health * To prevent worsening of your condition and complications * To maintain your health at the optimal level Directions to Meet Your Goals Take your medications as prescribed Follow your dietary instruction Follow activity as directed Keep your appointments as scheduled Take your immunizations and boosters as scheduled If your symptoms worsen call your PCP, if no PCP go to Urgent Care Center or Emergency Room Smoking is Dangerous to Your Health. Avoid second hand smoke Call the 24-hour hour crisis hotline for domestic abuse at Carol Birmingham MD Oct 26, 2016 08:45
--- NOTE | 2016-10-26 08:45 | HHI.DS ---
Discharge Summary Admission Date Oct 24, 2016 at 18:30 Discharge Date: Oct 26, 2016 Admitting Diagnosis intentional overdose (1) Suicidal intent ICD Code: R45.851 Diagnosis: Principal (2) Narcotic overdose ICD Code: T40.601A Diagnosis: Principal (3) Seizure ICD Code: R56.9 Diagnosis: Principal (4) Insomnia ICD Code: G47.00 Diagnosis: Secondary (5) Adjustment disorder with depressed mood ICD Code: F43.21 Diagnosis: Secondary (6) Observed seizure-like activity ICD Code: R56.9 Diagnosis: Principal (7) Other psychotic disorder not due to a substance or known physiological condition ICD Code: F28 Diagnosis: Secondary (8) Major depression ICD Code: F32.9 Diagnosis: Secondary (9) HTN (hypertension) ICD Code: I10 Diagnosis: Secondary Procedures none Brief History - From Admission 61-year-old male brought in by EMS with altered mental status. Patient reportedly was outside a local [facility] early this morning, and spoke to police at approximately 3 AM. At that time he states he took his bipolar medications. Is now reported that the patient drank almost a whole 12 ounce bottle of mouthwash and took at least 2 Lortabs. He now presents obtunded but stable. It is notable the patient was seen yesterday for psychiatric evaluation for his major depression. Patient is currently nonverbal but oxygenating well. There is no sign of trauma on the patient. Patient has an allergy to ibuprofen. Patient received 0.8 narcan in the ED. He did spoke with the ED doctor thereafter, admitting he took pills, and mouth wash in suicidal attempt. Most of history is obtain form staff and records as at the time I saw the patient in the ED he was not talking at all. He opened eyes but did not follow commands or answer questions. VS are stable. CBC/BMP: 10/25/16 0425 10/25/16 0425 Significant Findings Laboratory Tests Test 10/24/16 10/24/16 10/25/16 10/26/16 11:50 12:10 04:25 04:07 White Blood Count 12.3 TH/MM3 (4.0-11.0) Red Blood Count 4.07 MIL/MM3 4.36 MIL/MM3 (4.50-5.90) (4.50-5.90) Hemoglobin 12.9 GM/DL (13.0-17.0) Hematocrit 38.0 % (39.0-51.0) Neutrophils (%) (Auto) 83.6 % (16.0-70.0) Neutrophils # (Auto) 10.3 TH/MM3 (1.8-7.7) Blood Urea Nitrogen 22 MG/DL (7-18) Estimat Glomerular Filtration 59 ML/MIN (>89) Rate Random Glucose 143 MG/DL (74-106) Salicylates Level 2.2 MG/DL (2.8-20.0) Acetaminophen Level LESS THAN 2.0 MCG/ML (10.0-30.0) Urine Ketones 10 mg/dL (NEG) Urine Occult Blood SMALL (NEG) Urine RBC 20 /hpf (0-3) Urine Mucus FEW /lpf (OCC) Arterial Blood Partial 37 mmHg (38-42) Pressure CO2 Urine Opiates Screen POS (NEG) Phenytoin (Dilantin) Level 8.8 MCG/ML 8.7 MCG/ML (10.0-20.0) (10.0-20.0) Imaging Last Impressions Head CT 10/24/16 1153 Signed Impressions: Service Date/Time: Monday, October 24, 2016 13:05 - CONCLUSION: No acute disease. Enoc Medrano MD Chest X-Ray 10/24/16 1114 Signed Impressions: Service Date/Time: Monday, October 24, 2016 11:52 - CONCLUSION: No acute disease. Enoc Medrano MD PE at Discharge GENERAL: This is a well-nourished, well-developed patient, in no apparent distress, currently drowsy though easily arousable. SKIN: No rashes, ecchymoses or lesions. Cool and dry. HEAD: Atraumatic. Normocephalic. No temporal or scalp tenderness. EYES: Pupils bilaterally constricted 2-3 mm, reactive. No pallor/ icterus. No injection or drainage. ENT: Nose without bleeding, purulent drainage or septal hematoma. Throat without erythema, tonsillar hypertrophy or exudate. Uvula midline. Airway patent. NECK: Trachea midline. No JVD or lymphadenopathy. Supple, nontender, no meningeal signs. CARDIOVASCULAR: Regular rate and rhythm without murmurs, gallops, or rubs. RESPIRATORY: Clear to auscultation. Breath sounds equal bilaterally. No wheezes , rales, or rhonchi. GASTROINTESTINAL: Abdomen soft, non-tender, nondistended. No hepato-splenomegaly , or palpable masses. No guarding. MUSCULOSKELETAL: Extremities without clubbing, cyanosis, or edema. No joint tenderness, effusion, or edema noted. No calf tenderness. NEUROLOGICAL: Drowsy, easily arousable, moving all 4 extremities, following commands. Knows he is at the hospital knows it is 2017. Hospital Course 61-year-old male with: Intentional suicidal overdose with mouthwash/narcotics/antidepressant/bipolar meds Encephalopathy Seizure History of depression Plan: Neuro: Received Ativan/ Fosphenytoin for seizures noted on EEG in ER. Neurology consult requested and patient has already been evaluated by Dr. Monroy. DC Fosphenytoin IV . Start dilantin 100 mg po TID per Dr Monroy. Awaiting psychiatry eval in view of intentional suicidal overdose. Cardiovascular: IV hydration, watch for hypotension Pulmonary: Supplemental O2 as needed. Wean off oxygen as tolerated GI/liver: Advance by mouth diet Renal/: IV hydration, monitor and replete electro lites, follow BUN/creatinine , follow urine output. Endocrine: Watch for hyperglycemia, SSI for glycemic control if needed Prophylaxis: SCDs, Lovenox for DVT prophylaxis Medically stable and cleared for DC Psychiatric evaluation, will admit inpatient psych per Dr Alvarez. Discussed with Dr Monroy neurology. Switch to dilantin 100 mg po tid and repeat level of dilantin in the morning. Patient to follow up with neuro as OP. Medically cleared for DC to med /psych Patient improved, was cleared by consultatns for DC to psych. To follow up with PCP and consultants. Pt Condition on Discharge: Good Discharge Disposition: Disc to Psych Care Fac Discharge Time: <= 30 minutes Discharge Instructions DIET: Follow Instructions for: As Tolerated, No Restrictions Activities you can perform: Regular-No Restrictions Follow up Referrals: Neurology - 3-5 Days with Herlinda Monroy MD PCP Follow-up - 3-5 Days New Orders: PHENYTOIN (DILANTIN) - Next Day New Medications: Phenytoin Extended (Dilantin) 100 Mg Cap 100 MG PO TID Control Seizures #90 Ref 0 CAP Continued Medications: Allopurinol (Allopurinol) 300 Mg Tab 300 MG PO DAILY Gout #30 Ref 0 TAB Citalopram (Celexa) 20 Mg Tab 20 MG PO DAILY Control Depression #30 Ref 0 TAB Diazepam (Valium) 5 Mg Tab 5 MG PO TID Ref 0 TAB Lisinopril (Lisinopril) 20 Mg Tab 20 MG PO BID #30 Ref 0 TAB Carol Birmingham MD Oct 26, 2016 08:45
[2016-10-26] MEDS: SODIUM CHLORIDE 0.9% FLUSH 5 ML FLUSH FLUSH SCH (08:57)
[2016-10-26] MEDS: FOSPHENYTOIN SODIUM 100 MG PE/2 ML VIAL IV SCH (08:57)
[2016-10-26] MEDS ORDERED: DILA100C PO (09:16)
[2016-10-26] MEDS ORDERED: PHENYTOIN SODIUM 100 MG CAP PO SCH (10:00)
== END 2016-10-26 11:40 | DRG 917 ==
LOC: NEPC 11:06 → NEDA 14:39 → OBSVTOIN 18:30 → HIMN 20:15
PROVIDERS: ADMIT Hospitalist; ATTEND Hospitalist
DX: T40.602A Poisoning by unspecified narcotics, intentional self-harm, initial encounter (principal); G92 Toxic encephalopathy; F31.9 Bipolar disorder, unspecified; I10 Essential (primary) hypertension; T49.6X2A Poisoning by otorhinolaryngological drugs and preparations, intentional self-harm, initial encounter; T43.202A Poisoning by unspecified antidepressants, intentional self-harm, initial encounter; G40.901 Epilepsy, unspecified, not intractable, with status epilepticus; M10.9 Gout, unspecified; E78.5 Hyperlipidemia, unspecified; F43.21 Adjustment disorder with depressed mood; G47.00 Insomnia, unspecified; Z88.6 Allergy status to analgesic agent; G89.29 Other chronic pain
CPT/HCPCS: 36600; 70450; 71010; 80048; 80053; 80185; 80307; 80320; 80329; 81001; 82805; 85025; 87641; 93005; 95819; 96361; 96365; 96375; 99283; G0378; G0480; G0481; J1650; J2060; J2310; J7030; P9612; Q2009

== ENCOUNTER 2016-10-26 12:20 | Inpatient (IN) | payer OTHER, MEDICARE ==
[2016-10-26 12:05] VITALS: BP 169/84; PULSE 102; RESP 16; TEMP 98.8; O2SAT 96
[~2016-10-26 12:20] MED LIST changes: -ALLO300; +CELE20TA PO; -CITA20 PO; +DIAZ5 PO; +DILA100C PO; -LISI-363 PO; +LISI-515 PO; -VALI5TAB OR
[2016-10-26] MEDS: PHENYTOIN SODIUM 100 MG CAP PO SCH ×3 (14:40→16:44)
[2016-10-26] MEDS ORDERED: MAGNESIUM HYDROXIDE SUSP 30 ML CUP PO PRN (16:45)
[2016-10-26] MEDS ORDERED: LORazepam 2 MG TAB PO PRN (16:45)
[2016-10-26] MEDS ORDERED: hydrOXYzine HCL 50 MG TAB PO PRN (16:45)
[2016-10-26] MEDS ORDERED: LORazepam 1 MG TAB PO PRN (16:45)
[2016-10-26] MEDS ORDERED: LORazepam 2 MG/ML VIAL IM PRN ×4 (16:45)
[2016-10-26] MEDS ORDERED: BENZTROPINE MESYLATE 2 MG/2 ML VIAL IM PRN (16:45)
[2016-10-26] MEDS ORDERED: FLUMAZENIL 0.5 MG/5 ML VIAL IV PUSH PRN (16:45)
[2016-10-26] MEDS ORDERED: BENZTROPINE MESYLATE 1 MG TAB PO PRN (16:45)
[2016-10-26] MEDS ORDERED: ALUMINUM/MAGNESIUM/SIMETH 30 ML CUP PO PRN (16:45)
[2016-10-26 18:38] VITALS: BP 124/84; PULSE 112; RESP 17; TEMP 98.6; O2SAT 99
[2016-10-26 18:40] VITALS: TEMP 99
[2016-10-26] MEDS: LISINOPRIL 20 MG TAB PO SCH (20:29)
[2016-10-27] MEDS: ACETAMINOPHEN 325 MG TAB PO PRN (00:41)
[2016-10-27 05:35] VITALS: BP 115/64; PULSE 98; RESP 18; TEMP 98.3; O2SAT 100
[2016-10-27 07:50] LABS: AUTOMATED NEUTROPHIL # 10.7 TH/MM3 (1.8-7.7); BASOPHIL % 0.2 % (0.0-2.0); EOSINOPHIL % 0.2 % (0.0-4.0); HEMATOCRIT 39.8 % (39.0-51.0); HEMO FLAGS DIFF FINAL; LYMPH % 16.3 % (9.0-44.0); LYMPHOCYTE # 2.3 TH/MM3 (1.0-4.8); MEAN CELL VOLUME 93.4 FL (80.0-100.0); MEAN CORPUSCULAR HEMOGLOBIN 31.8 PG (27.0-34.0); NEUT % 76.3 % (16.0-70.0); PLATELET COUNT 209 TH/MM3 (150-450); RED BLOOD COUNT 4.26 MIL/MM3 (4.50-5.90); RED CELL DISTRIBUTION WIDTH 13.3 % (11.6-17.2)
[2016-10-27 08:15] LABS: ALKALINE PHOSPHATASE 75 U/L (45-117); ALT (GPT) 39 U/L (12-78); ANION GAP 8 MEQ/L (5-15); AST (GOT) 14 U/L (15-37); BICARBONATE 27.7 MEQ/L (21.0-32.0); BLOOD UREA NITROGEN 19 MG/DL (7-18); CHLORIDE 99 MEQ/L (98-107); GLOMERULAR FILTRATION RATE 60 ML/MIN (>89); HDL CHOLESTEROL 36.9 MG/DL (40.0-60.0); LDL CHOLESTEROL 79 MG/DL (0-99); POTASSIUM 4.1 MEQ/L (3.5-5.1); SODIUM (NA) 135 MEQ/L (136-145); TOTAL BILIRUBIN ADULT 0.5 MG/DL (0.2-1.0)
[2016-10-27] MEDS: LISINOPRIL 20 MG TAB PO SCH ×2 (08:49→21:00)
[2016-10-27] MEDS: ALLOPURINOL 300 MG TAB PO SCH (08:49)
[2016-10-27] MEDS ORDERED: CITALOPRAM HYDROBROMIDE 20 MG TAB PO SCH (09:00)
[2016-10-27] MEDS ORDERED: REMOVE OLD PATCH T-DERMAL SCH (09:00)
[2016-10-27] MEDS ORDERED: NICOTINE 21 MG/24 HR PATCH T-DERMAL SCH (09:00)
[2016-10-27 12:30] LABS: APTT (PATIENT) 28.2 SEC (24.3-30.1); PROTHROMBIN TIME - PATIENT 10.9 SEC (9.8-11.6)
--- NOTE | 2016-10-27 13:36 | MH ---
cc: BEAU CASTELAN MD DATE OF ADMISSION: 10/26/2016 ADMITTING DIAGNOSIS 1. Other psychotic disorder Rule out schizoaffective disorder or other primary psychotic disorder, rule out neurocognitive disorder, rule out personality disorder. Rule out ongoing NCSE or postictal phenomenon. LEGAL STATUS The patient is not capacitated to sign into the hospital voluntarily or consent for medications. HISTORY OF PRESENT ILLNESS Mr. Dodd is a 61-year-old male with a chart history of depressive disorder who is admitted to the inpatient psychiatric unit under a [place] Act. I had seen the patient about four days ago on the in consultation in the emergency department. His presentation at that time was extremely vague. He was brought into the emergency department the next day by EMS for altered mental status. The patient was admitted to the medical unit and seen in consultation by Dr. Alvarez who lifted the [place] Act that the patient had been placed under and recommended discharge. The patient apparently then passed a note to his nurse saying that he wanted a bullet to injure himself with. I have reviewed this note. The patient was placed under a new [place] Act and transferred to inpatient psychiatry. The patient is seen and examined with counselor and nursing staff. Chart reviewed. Case discussed with nurse on the inpatient psychiatric unit. On my examination today, the patient presents as an extremely vague and diffuse historian. When I asked why he came into the hospital in the first place back on the he said "That's a good question; because I'm not on Xanax. Xanax keeps me calm and relaxed." He now denies drinking a bottle of mouthwash has had been alleged when he initially presented and says that he simply had been taking sips of it while he was out for a walk because he feels like his breath was bad. When I inquire about the suicide note that he wrote to his nursing staff up on the medical floor he says "That's a good question. If I was ever to go down that's how I would go." He denies any suicidal or homicidal ideation at this time however. He denies AVH. He does seem to be somewhat oddly related and his thought process is not completely linear. For example, the patient is requesting lactulose, although this is not one of his prior admission medications. When I asked why he explains that his had liver and pancreas issues and she took lactulose and the patient believes his own liver is somehow impaired and so he feels that he should take lactulose as well although it has not been prescribed to him. The remainder of the psychiatric ROS is negative. I obtained a past psychiatric, family, chemical dependency and social history during my consultation on October 23 under visit number [id number]. I have reviewed these details with the patient and they are unchanged today except to say that the patient says that he lives in a cabin "with a roommate. I'm not a garrett person and he's not a garrett person." He returns to his concerns regarding homosexuality later in the interview apropos of nothing. Otherwise, these data are unchanged. PAST MEDICAL HISTORY See electronic medical record. I do note that the patient was found to be in status epilepticus by EEG while he was up on the medical floor and this was broken with the administration of IV Ativan. The patient is now on phenytoin. REVIEW OF SYSTEMS Limited somewhat by the patient's vagueness but no reported headache or vision/hearing changes. No chest pain or shortness of breath. No bowel or bladder issues. No other real somatic complaints. PHYSICAL EXAMINATION Vital signs: Temperature is 98.3 Fahrenheit, pulse is 98, respirations 18, blood pressure 115/64, and pulse oximetry is 100% on room air. A physical examination was completed by the hospitalist prior to transfer from the inpatient medical unit. On my examination today, the patient appears to be in no acute physical distress. No abnormal motor movements noted. No hand tremor, no diaphoresis, no mydriasis, no other signs of divergent withdrawal. No ictal activity noted. LABORATORY DATA Laboratory is reviewed. CBC is significant for mild leukocytosis at 14. CMP is significant for mild hyponatremia and decreased GFR. Liver function is intact. I have additionally ordered coagulation studies which are unremarkable as well as an ammonia level which is not elevated in this patient. TSH is within normal limits. Head CT was performed during the preceding medical admission and was read as negative for acute disease. MENTAL STATUS EXAMINATION The patient is casually dressed. He is fairly well-groomed. He is awake and alert and oriented x3. No abnormal motor movements noted. Speech is within normal limits for rate, tone and volume. Language and fund of knowledge seem adequate and appropriate for age. Mood is fair and affect is blunted and somewhat interpersonally odd. Thought process is slowed and tangential at times, perhaps very slightly disorganized. No loosening of associations. No ulisses delusional material. Denies AVH. Denies suicidal or homicidal ideation. Insight and judgment are unclear at present. ASSESSMENT AND PLAN This is a 61-year-old male with psychiatric history as detailed above who presents in transfer from the medical floor under a [place] Act after apparently passing a nurse a note asking for a bullet. The patient had presented to the emergency department initially with altered mental status and was seen in consultation by consultation liaison psychiatrist. The patient's presentation today is quite atypical, with some features of subtle psychosis. He was found to be in nonconvulsive status epilepticus up on the medical floor and I wonder about a postictal phenomenon or ongoing NCSE. I also wonder about a primary psychotic disorder, possibly with some somatic delusions related to his 's history of reported liver and pancreas issues. The patient may also have some degree of substance use issues as I have postulated during my initial consultation. Overall, the clinical picture is quite unclear at present and the patient would likely benefit from inpatient psychiatric hospitalization for observation and for safety and if necessary for psychiatric stabilization. Admit inpatient. Involuntary status. I have initiated a petition for involuntary psychiatric hospitalization and consulted for a second opinion. Request HCS/GA. Consult to neurology to assess for possible ongoing NCSE or post-ictal phenomenon. Additionally consult to the hospitalist and to physical therapy. I will continue the patient's allopurinol, lisinopril and phenytoin. I will add a low dose of Zyprexa at bedtime to try to linearize his thought processes. Atarax as needed for anxiety, Cogentin as needed for EPS, Benadryl as needed for sleep. CIWA scale with Ativan for withdrawal. Vitals every shift. Counselor to see. Disposition planning. Seizure and fall precautions. Estimated length of stay: 5-7 days. Beau Castelan DC/LAILA /12:54 PM /1:14 PM [facility]
[2016-10-27 16:05] LABS: HEMOGLOBIN A1a 1.2 %; HEMOGLOBIN A1b 0.9 %; HEMOGLOBIN Ao 85.1 %; HEMOGLOBIN F 1.3 %; HEMOGLOBIN LA1C 1.9 %; HEMOGLOBIN P3 3.8 %
--- NOTE | 2016-10-27 16:38 | PD.CONS ---
[facility] Reason for Consult Overdose, management of chronic conditions including hypertension and gout Primary Care Physician Unknown Diagnoses: History of Present Illness This is a 61-year-old male with history of hypertension and gout who presented to the emergency department with altered mental status after patient overdosed on his bipolar medications. Patient was initially admitted at the inpatient unit. Patient received Narcan, CT scan of the brain was unremarkable, neurology saw the patient. Patient received Ativan and fosphenytoin for seizures in the emergency department. Dilantin was started on discharge. Patient was medically cleared for discharge and admitted to the psychiatry unit. Per patient, he does not have any complaints. Denies any headache, nausea or vomiting. He when he wants to be restarted on his medications. He also wants a pain medication for chronic low back pain and allegedly he is usually on Lortab. Review of Systems ROS Limitations: Other (All other pertinent systems were reviewed and are negative.) Past Family Social History Allergies: Uncoded Allergies: ibuprofen (Allergy, Severe, 04/26/12) Throat swelling prevastatin (Adverse Reaction, Severe, 10/25/16) pt reports med built up in sytem causing severe muscle aches Past Medical History Hypertension Gout Seizures Past Surgical History Hernia repair Reported Medications Dilantin (Phenytoin Extended) 100 Mg Cap 100 Mg PO TID Lisinopril 20 Mg Tab 20 Mg PO BID Valium (Diazepam) 5 Mg Tab 5 Mg PO TID Celexa (Citalopram Hydrobromide) 20 Mg Tab 20 Mg PO DAILY Allopurinol 300 Mg Tab 300 Mg PO DAILY Family History Mother had a fall and from complications of that, father had cancer. Social History Patient denies smoking, significant alcohol intake or use of any illicit drugs. Physical Exam Vital Signs Vital Signs Date Time Temp Pulse Resp B/P Pulse Ox O2 Delivery O2 Flow Rate FiO2 10/27/16 05:35 98.3 98 18 115/64 100 10/26/16 18:40 99.0 10/26/16 18:38 98.6 112 17 124/84 99 Physical Exam Not in distress, well-nourished, looks stated age PERRL, pink conjunctiva without injection, anicteric Nose without bleeding, airway patent, oropharynx clear Supple neck, no masses or thyromegaly, trachea midline Normal rate and regular rhythm, no murmurs gallops or rubs appreciated. Clear to auscultation and symmetric bilaterally, normal respiratory effort. Normal bowel sounds, soft, non-tender, nondistended, no guarding. Overweight. Extremities without clubbing, cyanosis, or edema. No rash of generalized distribution. Skin is warm and dry. AAO x3, no cranial nerve deficits, moves all 4 extremities, no focal neurologic deficits Laboratory Laboratory Tests Test 10/27/16 10/27/16 06:43 12:06 White Blood Count 14.0 Red Blood Count 4.26 Hemoglobin 13.5 Hematocrit 39.8 Mean Corpuscular Volume 93.4 Mean Corpuscular Hemoglobin 31.8 Mean Corpuscular Hemoglobin 34.0 Concent Red Cell Distribution Width 13.3 Platelet Count 209 Mean Platelet Volume 10.1 Neutrophils (%) (Auto) 76.3 Lymphocytes (%) (Auto) 16.3 Monocytes (%) (Auto) 7.0 Eosinophils (%) (Auto) 0.2 Basophils (%) (Auto) 0.2 Neutrophils # (Auto) 10.7 Lymphocytes # (Auto) 2.3 Monocytes # (Auto) 1.0 Eosinophils # (Auto) 0.0 Basophils # (Auto) 0.0 CBC Comment DIFF FINAL Differential Comment Sodium Level 135 Potassium Level 4.1 Chloride Level 99 Carbon Dioxide Level 27.7 Anion Gap 8 Blood Urea Nitrogen 19 Creatinine 1.23 Estimat Glomerular Filtration 60 Rate Random Glucose 97 Calcium Level 9.6 Total Bilirubin 0.5 Aspartate Amino Transf 14 (AST/SGOT) Alanine Aminotransferase 39 (ALT/SGPT) Alkaline Phosphatase 75 Total Protein 7.6 Albumin 3.5 Triglycerides Level 104 Cholesterol Level 137 LDL Cholesterol 79 HDL Cholesterol 36.9 Cholesterol/HDL Ratio 3.71 Thyroid Stimulating Hormone 2.010 3rd Gen Prothrombin Time 10.9 Prothromb Time International 1.0 Ratio Activated Partial 28.2 Thromboplast Time Ammonia LESS THAN 10 Result Diagram: 10/27/1643 10/27/1643 Assessment and Plan Assessment and Plan This is a 61-year-old male who is admitted to psych unit for intentional overdose Hypertension-borderline control-restart lisinopril, clonidine as needed. Gout-not in exacerbation-continue allopurinol Seizures-seen by neurology, cleared, continue Dilantin. Review of records showed EEG showing status epilepticus which aborted after Ativan, CT scan of the head reviewed and was unremarkable. Check Dilantin levels in a few days. Thank you very much for this consult, we will follow along with you. Montse Maxwell MD Oct 27, 2016 16:38
[2016-10-27] MEDS ORDERED: cloNIDine HCL 0.1 MG TAB PO PRN (16:45)
[2016-10-27] MEDS: PHENYTOIN SODIUM 100 MG CAP PO SCH (17:43)
[2016-10-27 19:27] VITALS: BP 121/67; PULSE 97; RESP 18; TEMP 98.4; O2SAT 99
[2016-10-27] MEDS ORDERED: OLANZapine 5 MG TAB PO SCH (21:00)
[2016-10-28] MEDS: PHENYTOIN SODIUM 100 MG CAP PO SCH ×4 (00:54→20:44)
[2016-10-28 06:16] VITALS: BP 115/64; PULSE 97; RESP 18; TEMP 98.5; O2SAT 95
[2016-10-28 08:00] VITALS: BP 116/66; PULSE 90; RESP 18; TEMP 97.9; O2SAT 98
[2016-10-28] MEDS: LISINOPRIL 20 MG TAB PO SCH ×2 (08:50→20:44)
[2016-10-28] MEDS: ALLOPURINOL 300 MG TAB PO SCH (08:51)
--- NOTE | 2016-10-28 12:12 | PD.CONS ---
Provisional Diagnosis Admission Date Oct 26, 2016 at 12:20 [place] I. Other psychotic disorder [place] III. seizure disorder History of Present Illness Service Psychiatry Consult Requested By Psychiatry Reason for Consult 2nd opinion Primary Care Physician Unknown HPI Pt is a 61YOWM admitted to psychiatry after transfer from medical floor. Pt admits to passing nurse a note (reviewed on chart) requesting a bullet. Pt is odd and somewhat disorganized in thought process. He admits to requesting a bullet for suicide and waxes on about if he is going to do it he'd like to do it that way because it would be painless. He is very nonchalant during interview and show little insight. He is bizarre at times per staff and has been passing bizarre notes. He requests to see a [facility] psychiatrist on Tuesdays and Fridays because it will "get me out of the house." He denies HI and is vague about SI. Staff report that pt is paranoid about medications and paperwork. He refuses olanzapine despite psychoeducation. Review of Systems Psychiatric: COMPLAINS OF: Mood changes Past Family Social History Uncoded Allergies: ibuprofen (Allergy, Severe, 04/26/12) Throat swelling prevastatin (Adverse Reaction, Severe, 10/25/16) pt reports med built up in sytem causing severe muscle aches Past Medical History seizure disorder Active Scripts Phenytoin Extended (Dilantin)100 Mg [id number] Mg PO TID #90 CAP Ref 0 Prov:Carol Birmingham MD 10/26/16 Reported Medications Lisinopril 20 Mg Tab20 Mg PO BID #30 TAB Ref 0 10/24/16 Diazepam (Valium)5 Mg Tab5 Mg PO TID Ref 0 10/24/16 Citalopram (Celexa)20 Mg Tab20 Mg PO DAILY #30 TAB Ref 0 10/24/16 Allopurinol 300 Mg [id number] Mg PO DAILY #30 TAB Ref 0 10/24/16 Current Medications Medications (Trade) Dose Ordered Sig/Te Route Start Time Stop Time Status Last Admin (Zyloprim) 300 mg DAILY PO 10/27/16 09:00 10/28/16 08:51 (Prinivil) 20 mg BID PO 10/26/16 21:00 10/28/16 08:50 (Benadryl) 50 mg HS PRN PO 10/26/16 16:45 Hold (Tylenol) 650 mg Q4H PRN PO 10/26/16 16:45 10/27/16 00:41 (Milk Of Magnesia Liq) 30 ml DAILY PRN PO 10/26/16 16:45 10/27/16 04:55 (Mag-Al Plus Susp Liq) 30 ml Q6H PRN PO 10/26/16 16:45 (Atarax) 50 mg Q6H PRN PO 10/26/16 16:45 Hold (Cogentin) 1 mg Q12H PRN PO 10/26/16 16:45 Hold (Cogentin Inj) 1 mg Q12H PRN IM 10/26/16 16:45 Hold (Ativan) 1 mg Q4H PRN PO 10/26/16 16:45 Hold (Ativan Inj) 1 mg Q4H PRN IM 10/26/16 16:45 Hold (Ativan) 2 mg Q2H PRN PO 10/26/16 16:45 Hold (Ativan Inj) 2 mg Q2H PRN IM 10/26/16 16:45 Hold (Ativan Inj) 2 mg Q1H PRN IM 10/26/16 16:45 Hold (Ativan Inj) 2 mg Q15M PRN IM 10/26/16 16:45 Hold (ZyPREXA) 5 mg HS PO 10/27/16 21:00 Hold (Catapres) 0.1 mg Q6H PRN PO 10/27/16 16:45 (Dilantin) 200 mg Q12HR PO 10/28/16 09:00 10/28/16 09:00 Family History vague, unable to obtain a relevant history Social History Lives with roommates, 18 months ago Patient's Strengths (min. 2) access to care, verbal Physical Exam Vital Signs Vital Signs Date Time Temp Pulse Resp B/P Pulse Ox O2 Delivery O2 Flow Rate FiO2 10/28/16 08:00 97.9 90 18 116/66 98 Mental Status Examination Speech: Tangential Orientation: x3 Memory: Unremarkable Thought Process: Thought Blocking Thought Content: Bizarre thinking, Paranoid Hallucination Type: None Attention and Concentration: Easily Distracted Suicidal Ideation: Yes ( requesting bullets) Previous Suicide Attempts: Yes Homicidal Ideation: No Previous Homicide Attempts: No Insight: Poor Judgement: Poor Affect: Other (bizarrely superficial and nonchalant) Mood: Sad, Other (calm) Motor Activity: Abnormal gait-specify (walks with cane) Assessment & Plan Problem List: (1) Other psychotic disorder not due to a substance or known physiological condition ICD Code: F28 Assessment & Plan I agree that pt meets BA criteria due to psychosis and SI. 2nd opinion paperwork completed.Estimated LOS: days Ivana Sun MD Oct 28, 2016 12:12
--- NOTE | 2016-10-28 14:12 | MB ---
cc: YAZAN GEE MD DATE OF CONSULTATION: 10/28/2016 REASON FOR CONSULTATION: Reconsult for followup of possible nonconvulsive seizures. HISTORY OF PRESENT ILLNESS: The patient was recently transferred from the main hospital ICU to the psychiatry unit. I have seen the patient in the ICU for encephalopathy, which was secondary to medication overdose, questionable intentional, and the EEG at that time revealed a nonconvulsive status epilepticus with bilateral symmetrical spike and wave activity. The patient was started on Dilantin 100 milligrams three times daily. The status epilepticus state was aborted by two runs of Ativan, and the patient started recovering shortly after the initiation of these doses. The patient was transferred to the psychiatry unit in a stable neurologic condition. At this time, the psychiatry service reconsulted neurology for reassessment. REVIEW OF SYSTEMS: A twelve-point review of systems was negative except as stated in the history of present illness. PAST MEDICAL HISTORY: 1. Bipolar disorder. 2. Depression. 3. Coronary artery disease. 4. Hyperlipidemia. 5. Gout. 6. Hypertension. PAST SURGICAL HISTORY: 1. Hernia repair. SOCIAL HISTORY: Denies alcohol use, tobacco use and illicit drug abuse. ALLERGIES: 1. IBUPROFEN. MEDICATIONS: 1. Lisinopril. 2. Valium. 3. Celexa. 4. Allopurinol. FAMILY HISTORY: Unable to obtain. PHYSICAL EXAMINATION: GENERAL: The patient is well-groomed, not in acute distress at present and a good historian. HEAD, EYES, EARS, NOSE, THROAT: Normocephalic and atraumatic. Intact hearing and vision. NECK: No carotid bruits. No signs of meningeal irritation. The neck is supple. CARDIOVASCULAR: Regular rate and rhythm. No murmurs. RESPIRATORY: Clear to auscultation. No wheezes. MUSCULOSKELETAL: Moves all extremities. No cyanosis or edema and no deformities. NEUROLOGICAL EXAMINATION: Awake, alert and oriented to time, person and place. Intact speech. Intact speech content. MOTOR SYSTEM EXAMINATION: 5/5 bilateral and symmetrical. No abnormal movements. SENSORY SYSTEM: Intact sensation bilateral and symmetrical to superficial temperature and touch. CEREBELLAR SYSTEM: Cerebellar functions are intact [id number] and [id number]. REFLEXES: 2+ bilateral and symmetrical. Plantars are bilaterally downgoing. STANCE AND GAIT: Intact. Stance - negative Romberg. No ataxia. PSYCHOLOGICAL: Good mood and behavior. No hallucinations. - EEG: A review of the EEG that was done on 10/24/2016 was reported with status epilepticus pattern followed by abrupt cessation of seizure activity after the administration of IV Ativan. - IMAGING STUDIES: 10/24/[address] scan without contrast revealed no acute disease. 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 PLAN: 1. Neuro checks q. four hourly. 2. Dilantin level was noted to be low on 10/28 at 4.2. 3. Increase Dilantin two 200 milligrams q. 12 hourly. 4. Follow up EEG. 5. Seizure precautions. Thank you for the opportunity to participate in the care of your patient. MD VIRA Zamudio/MIGUELITO /8:52 AM /1:59 PM NABIL
[2016-10-28 19:20] VITALS: BP 125/62; PULSE 87; RESP 18; TEMP 97.6; O2SAT 100
--- NOTE | 2016-10-28 23:56 | MG ---
cc: STEFAN ALVARENGA MD Lab No: [id number] Date: 10/28/2016 Age: 61 Sex: M Race: DATE OF 1955 HISTORY A 61-year-old, history of mental status changes. A lot of chewing, myogenic artifact. Posterior rhythm shows poly frequency theta alpha and delta and some increased beta frequencies as well, 10-50 microvolts. Generalized slowing of background suggestive of drowsy state. More frequent bursts 2-3 Hz delta activity. K complexes spindles epoch 55. Suggestive of stage II sleep. Good EEG reactivity during arousals from sleep state. Mild driving with photic stimulation. Single lead EKG showing sinus rhythm. INTERPRETATION Minimal encephalopathy in sleep state. Poly frequency EEG likely secondary to psychotropic medication effect. Clinical correlation. Stefan Alvarenga MD MG/EO /9:32 PM /11:42 PM [facility]
[2016-10-29 06:08] VITALS: BP 131/69; PULSE 82; RESP 18; TEMP 98.6; O2SAT 96
[2016-10-29] MEDS: ALLOPURINOL 300 MG TAB PO SCH (08:41)
[2016-10-29] MEDS: LISINOPRIL 20 MG TAB PO SCH ×2 (08:41→21:12)
[2016-10-29] MEDS: PHENYTOIN SODIUM 100 MG CAP PO SCH ×2 (08:42→21:12)
--- NOTE | 2016-10-29 10:14 | HHI.PR ---
Subjective Remarks Follow-up visit seizures, hypertension. Patient seen today. Reports he is doing well. Speech is slow. Information process is slow. Denies any seizure activity. Denies pain and discomfort. Denies SOB/ dyspnea. Denies chest pain, palpitations, headaches, dizziness. Denies fevers, chills, n/v/d. Objective Vitals Vital Signs Date Time Temp Pulse Resp B/P Pulse Ox O2 Delivery O2 Flow Rate FiO2 10/29/16 06:08 98.6 82 18 131/69 96 10/28/16 19:20 97.6 87 18 125/62 100 Result Diagram: 10/27/1643 10/27/16 0643 Objective Remarks GENERAL: This is a well-nourished, well-developed patient, in no apparent distress. HEENT: Normocephalic. Pupils equal round and reactive. Nose without bleeding. Airway patent. NECK: Trachea midline. No JVD. Supple. CARDIOVASCULAR: Regular rate and rhythm without murmurs, gallops, or rubs. RESPIRATORY: Clear to auscultation. Breath sounds equal bilaterally. No wheezes , rales, or rhonchi. GASTROINTESTINAL: Abdomen soft, non-tender, nondistended. Bowel Sounds normoactive x4. MUSCULOSKELETAL: Extremities without clubbing, cyanosis, or edema. NEUROLOGICAL: Awake and alert. Oriented to self, place, time. [place]. Slow speech. A/P Problem List: (1) Major depression ICD Code: F32.9 Status: Acute (2) Seizure ICD Code: R56.9 Status: Acute (3) HTN (hypertension) ICD Code: I10 Status: Acute Assessment and Plan This is a 61-year-old male who is admitted to psych unit for intentional overdose. Consulted for medical management. Hypertension-borderline control-restart lisinopril, clonidine as needed. - Monitor BP. - Controlled Gout-not in exacerbation-continue allopurinol Seizures-seen by neurology, cleared, continue Dilantin. Review of records showed EEG showing status epilepticus which aborted after Ativan, CT scan of the head reviewed and was unremarkable. -Followed by neurology Dr. Monroy. Dilantin dose increased. - Dilantin level 4.1 L. check Dilantin level tomorrow Labs reviewed Leukocytosis - check CBC tomorrow Mild hyponatremia - check BMP tomorrow Discuss with patient, nursing Written by Henrique Ross, acting as scribe for Dr. Maxwell on 10/29/16 at 09: 13. The documentation accurately reflects the work performed [id number] by me on at 09:13. Henrique Moses Oct 29, 2016 10:14 Montse Maxwell MD Oct 29, 2016 10:57
[2016-10-29] MEDS ORDERED: LORazepam 2 MG/ML VIAL ONE (11:49)
[2016-10-29] MEDS ORDERED: LORazepam 2 MG/ML VIAL IM PRN ×4 (12:00)
[2016-10-29] MEDS ORDERED: LORazepam 1 MG TAB PO PRN (12:00)
[2016-10-29] MEDS ORDERED: LORazepam 2 MG TAB PO PRN (12:00)
--- NOTE | 2016-10-29 13:09 | HHI.PYPN ---
Subjective Remarks Pt seen and discussed with staff. Pt is sitting is his room with arms held out to his sides. He states that he is trying to "hold my arms back from hurting people." He states that there is a group of snipers awaiting his signal (a thumbs up sign) to start shooting. "I don't think I want to , but there is this..." Staff report that pt appears to be more disorganized and psychotic today. Objective Alert: Yes [place]: Person, Place Mood: Anxious Affect: Flat Memory Intact: Comment (fair) Hallucinations: Other (appears internally stimulated) Delusions: Yes Delusion Type: Paranoid Suicidal: Ideation (denies but talks about suicide) Homicidal: Ideation ("I don't want to hurt anyone..that's why I haven't given the snipers the signal") Insight/Judgement poor Labs Test 10/29/16 08:49 Phenytoin (Dilantin) Level 4.1 MCG/ML Vitals/IOs Vital Signs Date Time Temp Pulse Resp B/P Pulse Ox O2 Delivery O2 Flow Rate FiO2 10/29/16 06:08 98.6 82 18 131/69 96 Assessment & Plan Problem List: (1) Other psychotic disorder not due to a substance or known physiological condition ICD Code: F28 Assessment & Plan Continue current tx plan. Estimated LOS: days Justification for Cont. Inpt. impairments in reality construction and safety. Ivana Sun MD Oct 29, 2016 13:09
[2016-10-29] MEDS: diphenhydrAMINE HCL 50 MG CAP PO PRN (23:35)
[2016-10-30 01:20] VITALS: BP 122/65; PULSE 101; RESP 18; TEMP 98.1
[2016-10-30 07:21] LABS: MEAN CORPUSCULAR HEMOGLOBIN 32.6 PG (27.0-34.0); MEAN CORPUSCULAR HGB CONC 35.1 % (32.0-36.0); PLATELET COUNT 208 TH/MM3 (150-450); RED BLOOD COUNT 3.98 MIL/MM3 (4.50-5.90); RED CELL DISTRIBUTION WIDTH 13.2 % (11.6-17.2); REVIEW FLAG FINAL; WHITE BLOOD COUNT 7.2 TH/MM3 (4.0-11.0)
[2016-10-30 07:44] LABS: BICARBONATE 26.1 MEQ/L (21.0-32.0); POTASSIUM 4.4 MEQ/L (3.5-5.1)
[2016-10-30] MEDS: ALLOPURINOL 300 MG TAB PO SCH (08:16)
[2016-10-30] MEDS: PHENYTOIN SODIUM 100 MG CAP PO SCH ×2 (08:16→21:42)
[2016-10-30] MEDS: LISINOPRIL 20 MG TAB PO SCH ×2 (08:16→21:42)
--- NOTE | 2016-10-30 12:13 | HHI.PYPN ---
Subjective Remarks Patient seen and examined with counselor. Chart reviewed. Case discussed with nursing staff who describes patient as needy and somewhat dictating of care. Patient apparently declined to accept his full dose of phenytoin this morning, saying that instead he would only accept half the dose. On my examination today I find the patient somewhat passive-aggressive and flippant at times. He continues to try to dictate his care and says that he will continue to decline phenytoin as it has been recommended to him. He denies any suicidal or homicidal ideation. Denies side effects from current medications. Says he might consider trying Zyprexa, but just a single dose. Review of Systems ROS Limitations: Poor Historian Other Complains of chronic musculoskeletal pain but no other physical complaints. Objective Alert: Yes [place]: Person, Place (at least) Mood: Calm Affect: Blunted Memory Intact: Comment (fair) Hallucinations: Other (No AVH) Delusions: No Delusion Type: Other (No delusions) Suicidal: Ideation (Denies SI) Homicidal: Ideation (Denies HI) Insight/Judgement Unclear Remarks No motoric abnormalities noted. No ictal activity noted. Thought process slightly circumstantial. Speech within normal limits for rate, tone and volume. Labs Test 10/30/16 06:08 White Blood Count 7.2 TH/MM3 Red Blood Count 3.98 MIL/MM3 Hemoglobin 13.0 GM/DL Hematocrit 37.0 % Mean Corpuscular Volume 93.0 FL Mean Corpuscular Hemoglobin 32.6 PG Mean Corpuscular Hemoglobin 35.1 % Concent Red Cell Distribution Width 13.2 % Platelet Count 208 TH/MM3 Mean Platelet Volume 9.7 FL Sodium Level 141 MEQ/L Potassium Level 4.4 MEQ/L Chloride Level 108 MEQ/L Carbon Dioxide Level 26.1 MEQ/L Anion Gap 7 MEQ/L Blood Urea Nitrogen 19 MG/DL Creatinine 0.85 MG/DL Estimat Glomerular Filtration 92 ML/MIN Rate Random Glucose 83 MG/DL Calcium Level 8.8 MG/DL Phenytoin (Dilantin) Level 3.8 MCG/ML Labs reviewed. EEG results reviewed. Vitals/IOs Vital Signs Date Time Temp Pulse Resp B/P Pulse Ox O2 Delivery O2 Flow Rate FiO2 10/30/16 01:20 98.1 101 18 122/65 10/29/16 06:08 96 Assessment & Plan Problem List: (1) Other psychotic disorder not due to a substance or known physiological condition ICD Code: F28 Assessment & Plan Offer patient Zyprexa this evening, if he will consent for it. I have encouraged patient to accept his full phenytoin dose and explained the rationale for this medication. Personality disordered features are becoming more prominent at this time, and the patient seems to be to some degree toying with the treatment team, although patient was more clearly psychotic over the weekend. Per nursing staff there has been no evidence of any suicidal or homicidal behavior on the inpatient psychiatric unit. Continue other medications and care as ordered. Justification for Cont. Inpt. Monitoring for safety Discharge Planning Monitor overnight. Beau Castelan MD Oct 30, 2016 12:13
[2016-10-30] MEDS: ACETAMINOPHEN 325 MG TAB PO PRN (15:55)
[2016-10-30 20:34] VITALS: BP 139/62; PULSE 16; RESP 18; TEMP 100; O2SAT 94
[2016-10-30 21:00] VITALS: BP 137/87; PULSE 102
[2016-10-30] MEDS: levETIRAcetam 500 MG TAB PO SCH (21:41)
[2016-10-31 05:59] VITALS: BP 110/53; PULSE 101; RESP 16; TEMP 99.1; O2SAT 96
--- NOTE | 2016-10-31 09:23 | HHI.PYPN ---
Subjective Remarks Patient seen and examined with counselor. Chart reviewed. Case discussed in treatment team. Per nursing staff, patient remains tangential and rambling. On my examination today, patient once again seems more obviously psychotic. He is indeed quite tangential, and we depart from a conversation about his son and end up with the patient volunteering to provide samples of "urine, feces, hair. " He continues to perseverate on not being a homosexual. He says that his goals are getting his cabin back in order and also helping blind people. No evident side effects from medications, and I do see that Dr. Monroy has started the patient on Keppra. With patient's permission, spoke with son, Artie. Artie notes patient has no history of mental illness prior to about a year ago, when patient reportedly began to grow more tangential and disorganized in his thought processes "he'd be talking about something unrelated to the conversation." Artie notes that there is no real functional impairment, and the patient's cabin is reportedly well tended. There is no family history of mental illness or memory impairment. Artie believes that patient has had a mental breakdown following the passing of his significant other and brother. Artie notes that prior to coming into the hospital here patient has been sleeping poorly. Artie reports that the patient has previously seen improvement in his mental status when he was resumed on his antiepileptics. Artie has no concerns about the patient being a suicide or violence risk and is chiefly concerned with the abnormal thought processes. Review of Systems ROS Limitations: Poor Historian Other No physical complaints today. Objective Alert: Yes [place]: Person, Place Mood: Calm Affect: Blunted (remains blunted) Memory Intact: Comment (Not formally assessed) Hallucinations: Other (None) Delusions: No Delusion Type: Other (No ulisses delusions) Suicidal: Ideation (No SI voiced) Homicidal: Ideation (No HI voiced) Insight/Judgement Unclear Remarks TP more tangential, at times disorganized. Speech somewhat rambling but not pressured. No abnormal motor movements noted. Labs Test 10/31/16 07:20 Phenytoin (Dilantin) Level 3.3 MCG/ML Labs reviewed. I note PHT level remains low and patient has been started on Keppra. Vitals/IOs Vital Signs Date Time Temp Pulse Resp B/P Pulse Ox O2 Delivery O2 Flow Rate FiO2 1/24/17 05:59 99.1 101 16 110/53 96 Assessment & Plan Problem List: (1) Other psychotic disorder not due to a substance or known physiological condition ICD Code: F28 Assessment & Plan Having obtained consent from son for Zyprexa, we will start this agent this evening, and hopefully this will help linearize patient's thought processes. Differential continues to include post-ictal phenomenon as well as primary psychotic disorder of apparently late onset. I have not ruled out a personality overlay. Appreciate ongoing residential solar sales consultant input. Continue other medications and care as ordered. Justification for Cont. Inpt. Risk for decompensation. Discharge Planning Pending psychiatric stabilization. Request HC Surrog/Guard Advoc?: Yes Beau Castelan MD Oct 31, 2016 09:22
[2016-10-31] MEDS: PHENYTOIN SODIUM 100 MG CAP PO SCH ×2 (09:33→20:34)
[2016-10-31] MEDS: levETIRAcetam 500 MG TAB PO SCH ×2 (09:33→20:33)
[2016-10-31] MEDS: ALLOPURINOL 300 MG TAB PO SCH (09:33)
[2016-10-31] MEDS: LISINOPRIL 20 MG TAB PO SCH ×2 (09:33→20:32)
--- NOTE | 2016-10-31 11:36 | HHI.PR ---
Subjective Remarks Follow-up visit seizures, hypertension. Patient seen today. Reports he is doing well. Speech is slow. Denies any seizure activity. Denies pain and discomfort. Denies SOB/ dyspnea. Denies chest pain, palpitations, headaches, dizziness. Denies fevers, chills, n/v/d. Objective Vitals Vital Signs Date Time Temp Pulse Resp B/P Pulse Ox O2 Delivery O2 Flow Rate FiO2 10/31/16 05:59 99.1 101 16 110/53 96 10/30/16 21:00 102 137/87 10/30/16 20:34 100.0 16 18 139/62 94 10/30/16 17:07 16 Result Diagram: 10/30/1660710/30/16 06 Objective Remarks GENERAL: This is a well-nourished, well-developed patient, in no apparent distress. HEENT: Normocephalic. Pupils equal round and reactive. Nose without bleeding. Airway patent. NECK: Trachea midline. No JVD. Supple. CARDIOVASCULAR: Regular rate and rhythm without murmurs, gallops, or rubs. RESPIRATORY: Clear to auscultation. Breath sounds equal bilaterally. No wheezes , rales, or rhonchi. GASTROINTESTINAL: Abdomen soft, non-tender, nondistended. Bowel Sounds normoactive x4. MUSCULOSKELETAL: Extremities without clubbing, cyanosis, or edema. NEUROLOGICAL: Awake and alert. Oriented to self, place, time. Slow speech. A/P Problem List: (1) Major depression ICD Code: F32.9 Status: Acute (2) Seizure ICD Code: R56.9 Status: Acute (3) HTN (hypertension) ICD Code: I10 Status: Acute Assessment and Plan This is a 61-year-old male who is admitted to psych unit for intentional overdose. Consulted for medical management. Hypertension-borderline control- continue lisinopril, clonidine as needed. - Monitor BP. - Controlled Gout-not in exacerbation-continue allopurinol Seizures-seen by neurology, cleared, continue Dilantin. Review of records showed EEG showing status epilepticus which aborted after Ativan, CT scan of the head reviewed and was unremarkable. -Followed by neurology Dr. Monroy. - Dilantin level 3.3 L. patient also on Kera Labs reviewed Leukocytosis - improved Mild hyponatremia - improved 141 Discuss with patient, nursing and Dr. Levy Patient appears medically stable and is being also followed by Dr. Monroy and neurology. HEPPAS will sign off at this time. If patient's condition changes or further assistance is needed please reconsult. Recommend patient follow up with PCP after discharge Debbie Lloyd Oct 31, 2016 11:36
[2016-10-31] MEDS ORDERED: OLANZapine IM 10 MG VIAL IM PRN (13:30)
[2016-10-31 19:00] VITALS: BP 117/59; PULSE 110; RESP 17; TEMP 99.8; O2SAT 95
[2016-10-31] MEDS ORDERED: OLANZapine 5 MG TAB PO SCH (21:00)
[2016-11-01 06:11] VITALS: BP 141/66; PULSE 86; RESP 18; TEMP 98.8; O2SAT 95
[2016-11-01] MEDS: ALLOPURINOL 300 MG TAB PO SCH (09:06)
[2016-11-01] MEDS: levETIRAcetam 500 MG TAB PO SCH ×2 (09:06→20:55)
[2016-11-01] MEDS: PHENYTOIN SODIUM 100 MG CAP PO SCH ×2 (09:06→20:54)
[2016-11-01] MEDS: LISINOPRIL 20 MG TAB PO SCH ×2 (09:06→20:52)
--- NOTE | 2016-11-01 10:20 | HHI.PYPN ---
Subjective Remarks Patient seen and examined with counselor. Chart reviewed. Case discussed with nursing staff who reports patient is somewhat more organized today. On my examination today, the patient's thought process does seem somewhat more linear since he received his first dose of Zyprexa last evening. He is able to ask to get a shave and is generally more relevant in conversation. There is some degree of ongoing thought disorganization however with extended questioning. When I endeavored to inquire as to whether he is experiencing suicidal thoughts he initially answers in the negative and then says "if something were to happen to me. If I was subject to a sentence" before trailing off. He does not elaborate further. He denies side effects from the Zyprexa except to say that he felt a little groggy this morning. Review of Systems Other no physical complaints today Objective Alert: Yes [place]: Person, Place Mood: Calm Affect: Blunted (remains somewhat blunted and a little oddly related) Memory Intact: Comment (Not formally assessed) Hallucinations: Other (no AVH) Delusions: No Delusion Type: Other (no delusional material) Suicidal: Ideation (denies SI currently but see above) Homicidal: Ideation (no homicidal ideation) Insight/Judgement Unclear Remarks Thought process somewhat less disorganized today. Speech within normal limits for rate, tone and volume. No abnormal motor movements noted. Labs Labs reviewed. No new labs. Vitals/IOs Vital Signs Date Time Temp Pulse Resp B/P Pulse Ox O2 Delivery O2 Flow Rate FiO2 11/01/16 06:11 98.8 86 18 141/66 95 Assessment & Plan Problem List: (1) Other psychotic disorder not due to a substance or known physiological condition ICD Code: F28 Assessment & Plan Patient seems to be deriving some therapeutic benefit from Zyprexa. I will titrate the dose gently to target ongoing psychotic symptoms and also move the dosing earlier in the evening to prevent morning grogginess. Appreciate hospitalist area development consultant employed. Continue other medications and care as ordered. Justification for Cont. Inpt. Risk for decompensation. Discharge Planning Pending psychiatric stabilization. [place] [address] tomorrow. Request HC Surrog/Guard Advoc?: Yes Beau Castelan MD Nov 01, 2016 10:20
[2016-11-01 19:50] VITALS: BP 109/64; PULSE 98; RESP 16; TEMP 99.4
[2016-11-01] MEDS ORDERED: OLANZapine IM 10 MG VIAL IM PRN (20:00)
[2016-11-01] MEDS: OLANZapine 5 MG TAB PO SCH (20:00)
[2016-11-02 06:00] VITALS: BP 139/78; PULSE 90; RESP 18; TEMP 99.6
[2016-11-02] MEDS: PHENYTOIN SODIUM 100 MG CAP PO SCH ×2 (08:42→20:25)
[2016-11-02] MEDS: ALLOPURINOL 300 MG TAB PO SCH (08:42)
[2016-11-02] MEDS: levETIRAcetam 500 MG TAB PO SCH ×2 (08:42→20:25)
[2016-11-02] MEDS: LISINOPRIL 20 MG TAB PO SCH ×2 (08:42→20:25)
--- NOTE | 2016-11-02 11:18 | HHI.PYPN ---
Subjective Remarks Patient seen and case discussed with nursing staff. Chart reviewed. Patient refused Zyprexa by mouth last night but was not administered Zyprexa IM for unclear reasons. He consequently did not receive any antipsychotic last night, and I have discussed the issue with nursing staff. Per nursing staff, patient has been selective with his antiepileptics as well. On my examination today, patient seems to have had some interval worsening in his thought disorder. He is somewhat more disorganized today. He denies any suicidal ideation. No side effects from medications. Review of Systems ROS Limitations: Poor Historian Other No physical complaints Objective Alert: Yes [place]: Person, Place Mood: Calm Affect: Blunted Memory Intact: Comment (Not formally assessed) Hallucinations: Other (none) Delusions: No Delusion Type: Other (no ulisses delusions) Suicidal: Ideation (no SI) Homicidal: Ideation (no HI) Insight/Judgement Poor Remarks Thought process remains disorganized. Speech a little bit rambling. Labs Labs reviewed. No new labs. Vitals/IOs Vital Signs Date Time Temp Pulse Resp B/P Pulse Ox O2 Delivery O2 Flow Rate FiO2 11/02/16 06:00 99.6 90 18 139/78 11/01/16 06:11 95 Assessment & Plan Problem List: (1) Other psychotic disorder not due to a substance or known physiological condition Assessment & Plan: Rule out postictal psychosis ICD Code: F28 Assessment & Plan Administer Zyprexa this evening as scheduled. Continue to encourage adherence with antiepileptics. Continue other medications and care as ordered. The patient's case was presented to the [place] court and the case was placed in a 2 week continuance. Justification for Cont. Inpt. Risk for decompensation Discharge Planning Pending psychiatric stabilization Request HC Surrog/Guard Advoc?: Yes Beau Castelan MD Nov 02, 2016 11:18
[2016-11-02 18:11] VITALS: BP 136/79; PULSE 93; RESP 16; TEMP 98.7; O2SAT 99
[2016-11-02] MEDS: OLANZapine 5 MG TAB PO SCH (20:00)
[2016-11-02] MEDS: diphenhydrAMINE HCL 50 MG CAP PO PRN (23:25)
[2016-11-03 05:21] VITALS: BP 139/82; PULSE 97; RESP 18; TEMP 97.4; O2SAT 99
[2016-11-03] MEDS: LISINOPRIL 20 MG TAB PO SCH ×2 (08:49→20:30)
[2016-11-03] MEDS: PHENYTOIN SODIUM 100 MG CAP PO SCH (08:50)
[2016-11-03] MEDS: ALLOPURINOL 300 MG TAB PO SCH (08:50)
[2016-11-03] MEDS: levETIRAcetam 500 MG TAB PO SCH (08:50)
--- NOTE | 2016-11-03 11:50 | HHI.PYPN ---
Subjective Remarks Patient seen and examined with counselor. Chart reviewed. Case discussed with nursing staff who reports patient remained somewhat suspicious of his medications but is less argumentative about accepting them. On my examination today, the patient reports that his mood is "a little better" than at admission. He denies any suicidal ideation. He reports that he slept well overnight and denies side effects from the Zyprexa. He does remain somewhat oddly related and there is some ongoing degree of thought disorganization. Towards the end of our conversation he requests a small tube of toothpaste that he has on his bed saying that he needs to eat a small quantity of it because he believes his breath is bad, although there is no evidence of this that I can discern. Review of Systems Other No somatic complaints today Objective Alert: Yes [place]: Person, Place Mood: Depressed (mood is reportedly improving) Affect: Blunted Memory Intact: Comment (Not formally assessed) Hallucinations: Other (no AVH) Delusions: Yes Delusion Type: Other (possibly some somatic delusions) Suicidal: Ideation (denies SI) Homicidal: Ideation (no HI) Insight/Judgement Poor Remarks No abnormal motor movements noted. Thought process remains mildly disorganized. Labs Labs reviewed. No new labs. Vitals/IOs Vital Signs Date Time Temp Pulse Resp B/P Pulse Ox O2 Delivery O2 Flow Rate FiO2 11/03/16 05:21 97.4 97 18 139/82 99 Assessment & Plan Problem List: (1) Other psychotic disorder not due to a substance or known physiological condition ICD Code: F28 Assessment & Plan Continue Zyprexa as ordered. Could consider titrating this to 10 mg over the weekend if patient does not see improvement day by day in his psychotic symptomatology. Continue other medications and care as ordered. Justification for Cont. Inpt. Impairments in reality construction. Risk for decompensation. Discharge Planning Pending psychiatric stabilization Request HC Surrog/Guard Advoc?: Yes Beau Castelan MD Nov 03, 2016 11:50
--- NOTE | 2016-11-03 17:17 | HHI.PR ---
Review/Management Diagnosis IMAGING STUDIES: 10/24/[address] scan without contrast revealed no acute disease. 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 Plan PLAN: 1. Neuro checks q. four hourly. 2. D/C Dilantin level 3. Increase Keppra to 750mg bid. 4. Seizure precautions. Diagnosis/Plan: Subjective Subjective Comments No reported seizure episodes Dilantin level consistently low Will D/C Dilantin A repeat EEG with no evidence of an ictal activity, encephalopathic pattern Active Medications Current Medications Medications (Trade) Dose Ordered Sig/Te Route Start Time Stop Time Status Last Admin (Zyloprim) 300 mg DAILY PO 10/27/16 09:00 11/03/16 08:50 (Prinivil) 20 mg BID PO 10/26/16 21:00 11/03/16 08:49 (Benadryl) 50 mg HS PRN PO 10/26/16 16:45 11/02/16 23:25 (Tylenol) 650 mg Q4H PRN PO 10/26/16 16:45 10/30/16 15:55 (Milk Of Magnesia Liq) 30 ml DAILY PRN PO 10/26/16 16:45 10/27/16 04:55 (Mag-Al Plus Susp Liq) 30 ml Q6H PRN PO 10/26/16 16:45 (Atarax) 50 mg Q6H PRN PO 10/26/16 16:45 10/29/16 23:35 (Cogentin) 1 mg Q12H PRN PO 10/26/16 16:45 (Cogentin Inj) 1 mg Q12H PRN IM 10/26/16 16:45 (Catapres) 0.1 mg Q6H PRN PO 10/27/16 16:45 (Ativan) 1 mg Q4H PRN PO 10/29/16 12:00 (Ativan Inj) 1 mg Q4H PRN IM 10/29/16 12:00 (Ativan) 2 mg Q2H PRN PO 10/29/16 12:00 (Ativan Inj) 2 mg Q2H PRN IM 10/29/16 12:00 10/29/16 14:55 (Ativan Inj) 2 mg Q1H PRN IM 10/29/16 12:00 (Ativan Inj) 2 mg Q15M PRN IM 10/29/16 12:00 (Keppra) 500 mg Q12HR PO 10/30/16 21:00 11/03/16 08:50 (ZyPREXA) 7.5 mg Taper HS PO 11/03/16 21:00 11/15/16 20:59 UNV (ZyPREXA INJ) 7.5 mg Taper HS PRN IM 11/03/16 21:00 11/15/16 20:59 UNV Allergies Allergies Uncoded Allergies ibuprofen ( Allergy, Severe, 04/26/12) pravastatin ( Adverse Reaction, Severe, 10/25/16) Exam I&O / VS Vital Signs Date Time Temp Pulse Resp B/P Pulse Ox O2 Delivery O2 Flow Rate FiO2 11/03/16 05:21 97.4 97 18 139/82 99 11/02/16 18:11 98.7 93 16 136/79 99 General: Alert and Oriented, No acute distress Eye: PERRL, EOMI, Normal conjuctiva Respiratory: Lungs CTA, Non-labored respirations Cardiology: Normal rate, No murmur Musculoskeletal: ROM Neurologic: Alert, Oriented, Normal sensory, Normal motor, No focal defects, CN II-XII intact Psychiatric: Cooperative, Appropriate mood & affect Herlinda Monroy MD Nov 03, 2016 17:16
[2016-11-03 18:33] VITALS: BP 133/63; PULSE 101; RESP 16; TEMP 98.8; O2SAT 96
[2016-11-03] MEDS: OLANZapine 5 MG TAB PO SCH (20:30)
[2016-11-03] MEDS: diphenhydrAMINE HCL 50 MG CAP PO PRN (20:30)
[2016-11-03] MEDS: levETIRAcetam 250 MG TAB PO SCH (20:30)
[2016-11-03] MEDS ORDERED: OLANZapine IM 10 MG VIAL IM PRN (21:00)
[2016-11-04] MEDS: ACETAMINOPHEN 325 MG TAB PO PRN (00:40)
[2016-11-04 05:24] VITALS: BP 143/77; PULSE 105; RESP 18; TEMP 98.3; O2SAT 98
[2016-11-04] MEDS: ALLOPURINOL 300 MG TAB PO SCH (08:25)
[2016-11-04] MEDS: levETIRAcetam 250 MG TAB PO SCH ×2 (08:25→20:13)
[2016-11-04] MEDS: LISINOPRIL 20 MG TAB PO SCH ×2 (08:26→20:13)
--- NOTE | 2016-11-04 16:52 | HHI.PYPN ---
Subjective Remarks Patient was seen and case discussed with nursing. Per nursing this morning, patient was disorganized and tangential. He was confused about his medications examining every pill. He was asking same question multiple times. During my interview he is disorganized and oriented 3. However he thinks he will be here for at least 2 weeks and his reason for admission is paranoia because a couple of squirrels were outside his house. Denies auditory visual hallucinations. Denies suicidal ideations intent or plan Objective Alert: Yes [place]: Person, Place Mood: Depressed (mood is reportedly improving) Affect: Blunted Memory Intact: Comment (Not formally assessed) Hallucinations: Other (no AVH) Delusions: Yes Delusion Type: Other (possibly some somatic delusions) Suicidal: Ideation (denies SI) Homicidal: Ideation (no HI) Insight/Judgement Poor Vitals/IOs Vital Signs Date Time Temp Pulse Resp B/P Pulse Ox O2 Delivery O2 Flow Rate FiO2 11/04/16 05:24 98.3 105 18 143/77 98 Intake and Output 11/03/16 11/03/16 11/04/16 08:00 16:00 00:00 Intake Total 480 ml Balance 480 ml Assessment & Plan Problem List: (1) Other psychotic disorder not due to a substance or known physiological condition ICD Code: F28 Assessment & Plan Patient is on the Zyprexa titration and is tolerating it well. He is due to get the 10 mg dose tomorrow Justification for Cont. Inpt. Patient will decompensate in a less restrictive setting Request HC Surrog/Guard Advoc?: Yes Jerod Haynes DO Nov 04, 2016 16:52
[2016-11-04 19:00] VITALS: BP 133/76; PULSE 91; RESP 18; TEMP 98.4; O2SAT 96
[2016-11-04] MEDS: OLANZapine 5 MG TAB PO SCH (20:13)
[2016-11-05 06:14] VITALS: BP 150/83; PULSE 98; RESP 18; TEMP 98; O2SAT 93
[2016-11-05] MEDS: levETIRAcetam 250 MG TAB PO SCH ×2 (08:37→20:15)
[2016-11-05] MEDS: ALLOPURINOL 300 MG TAB PO SCH (08:38)
[2016-11-05] MEDS: LISINOPRIL 20 MG TAB PO SCH ×2 (09:00→20:15)
--- NOTE | 2016-11-05 16:35 | HHI.PYPN ---
Subjective Remarks Patient was seen today and case discussed with nursing. Patient was asked about psychosis and he describes that "comes and goes." When asked specifics, patient gets defensive and says "I'm taking my medications and I'm supposed to get better right, is that not the plan." Largely keeps to himself. Denies suicidal ideation intent or plan Objective Alert: Yes [place]: Person, Place Mood: Depressed (mood is reportedly improving) Affect: Blunted Memory Intact: Comment (Not formally assessed) Hallucinations: Other (no AVH) Delusions: Yes Delusion Type: Other (possibly some somatic delusions) Suicidal: Ideation (denies SI) Homicidal: Ideation (no HI) Insight/Judgement Poor Vitals/IOs Vital Signs Date Time Temp Pulse Resp B/P Pulse Ox O2 Delivery O2 Flow Rate FiO2 11/05/16 06:14 98.0 98 18 150/83 93 Assessment & Plan Problem List: (1) Other psychotic disorder not due to a substance or known physiological condition ICD Code: F28 Assessment & Plan Continue current treatment plan Justification for Cont. Inpt. Patient will decompensate in a less restrictive setting Request HC Surrog/Guard Advoc?: Yes Jerod Haynes DO Nov 05, 2016 16:35
[2016-11-05 18:21] VITALS: BP 122/56; PULSE 74; RESP 17; TEMP 98.2
[2016-11-05] MEDS: OLANZapine 5 MG TAB PO SCH (20:15)
[2016-11-06] MEDS: LISINOPRIL 20 MG TAB PO SCH ×2 (09:00→20:10)
[2016-11-06] MEDS: levETIRAcetam 250 MG TAB PO SCH ×2 (09:00→20:10)
[2016-11-06] MEDS: ALLOPURINOL 300 MG TAB PO SCH (09:00)
--- NOTE | 2016-11-06 11:51 | HHI.PYPN ---
Subjective Remarks Patient seen and examined with counselor. Chart reviewed. Case discussed with nursing staff. Per nursing staff, thought disorganization is improving with psychotropic medication treatment although he does reportedly have some ongoing thought blocking. On my examination today, patient's thought process seems fairly linear. He feels like the Zyprexa is "the right one for me." He says "my mind has been on high alert and this has helped tone it down." He denies any ongoing suicidal or homicidal ideation. He is sleeping well. Review of Systems Other No physical complaints today Objective Alert: Yes [place]: Person, Place Mood: Calm Affect: Blunted Memory Intact: Comment (seems at least fair on clinical exam) Hallucinations: Other (no AVH) Delusions: No Delusion Type: Other (no delusional material) Suicidal: Ideation (denies suicidal ideation) Homicidal: Ideation (denies homicidal ideation) Insight/Judgement Fair Remarks Thought process linear. Speech more focused and within normal limits for rate, tone and volume. No hand tremor, no cogwheeling, no other motoric abnormalities noted. No ictal activity noted. Labs Labs reviewed. No new labs. Vitals/IOs Vital Signs Date Time Temp Pulse Resp B/P Pulse Ox O2 Delivery O2 Flow Rate FiO2 11/05/16 18:21 98.2 74 17 122/56 11/05/16 06:14 93 Assessment & Plan Problem List: (1) Other psychotic disorder not due to a substance or known physiological condition ICD Code: F28 Assessment & Plan Continue Zyprexa as ordered. Continue other medications and care as ordered. Justification for Cont. Inpt. Discharge planning. Discharge Planning Monitor overnight. Anticipate discharge tomorrow barring some clinical worsening. Request HC Surrog/Guard Advoc?: Yes Beau Castelan MD Nov 06, 2016 11:51
[2016-11-06 18:39] VITALS: BP 116/67; PULSE 82; RESP 18; TEMP 97.7; O2SAT 96
[2016-11-06] MEDS: OLANZapine 5 MG TAB PO SCH (20:10)
[2016-11-07 05:35] VITALS: BP 116/58; PULSE 95; RESP 18; TEMP 98.5; O2SAT 99
[2016-11-07] MEDS: ALLOPURINOL 300 MG TAB PO SCH (09:00)
[2016-11-07] MEDS: levETIRAcetam 250 MG TAB PO SCH (09:00)
[2016-11-07] MEDS: LISINOPRIL 20 MG TAB PO SCH (09:00)
[2016-11-07] MEDS ORDERED: LEVE250 PO (09:30)
[2016-11-07] MEDS ORDERED: OLAN5TAB PO (09:30)
[2016-11-07] MEDS ORDERED: LISI-515 PO ×2 (09:30→11:36)
[2016-11-07] MEDS ORDERED: ALLO300T2 PO ×2 (09:30→11:36)
--- NOTE | 2016-11-07 09:30 | HHI.DS ---
Psychiatry Discharge Summary Inpatient Psychiatric care?: Yes Advance Directive: No Reason Not Provided: Due to Patient Condition Mental Health AdvanceDirective: No Health Care Proxy: No Admission Admission Date Oct 26, 2016 at 12:20 Admission Diagnosis: (1) Other psychotic disorder not due to a substance or known physiological condition ICD Code: F28 Brief History Mr. Dodd is a 61-year-old male with a chart history of depressive disorder who is admitted to the inpatient psychiatric unit under a [place] Act. I had seen the patient about four days ago on the in consultation in the emergency department. His presentation at that time was extremely vague. He was brought into the emergency department the next day by EMS for altered mental status. The patient was admitted to the medical unit and seen in consultation by Dr. Alvarez who lifted the [place] Act that the patient had been placed under and recommended discharge. The patient apparently then passed a note to his nurse saying that he wanted a bullet to injure himself with. I have reviewed this note. The patient was placed under a new [place] Act and transferred to inpatient psychiatry. The patient is seen and examined with counselor and nursing staff. Chart reviewed. Case discussed with nurse on the inpatient psychiatric unit. On my examination today, the patient presents as an extremely vague and diffuse historian. When I asked why he came into the hospital in the first place back on the he said "That's a good question; because I'm not on Xanax. Xanax keeps me calm and relaxed." He now denies drinking a bottle of mouthwash has had been alleged when he initially presented and says that he simply had been taking sips of it while he was out for a walk because he feels like his breath was bad. When I inquire about the suicide note that he wrote to his nursing staff up on the medical floor he says "That's a good question. If I was ever to go down that's how I would go." He denies any suicidal or homicidal ideation at this time however. He denies AVH. He does seem to be somewhat oddly related and his thought process is not completely linear. For example, the patient is requesting lactulose, although this is not one of his prior admission medications. When I asked why he explains that his had liver and pancreas issues and she took lactulose and the patient believes his own liver is somehow impaired and so he feels that he should take lactulose as well although it has not been prescribed to him. The remainder of the psychiatric ROS is negative. Tobacco Use In Past 30 Days: No Tobacco Past 30 Days Alcohol Use: Monthly or Less Hospital Course Patient was admitted to a locked, inpatient psychiatric unit. A general medical and neurological consultation were obtained. Appropriate precautions were in place throughout patient's hospital stay. Patient was seen and examined daily on the unit by psychiatry and also visited by counselor. Medications were adjusted. Patient tolerated medications well without side effects. Patient was started on Zyprexa for his psychosis and the neurologist switched him from phenytoin to Keppra. Patient had improvement in his presenting psychiatric symptomatology during the course of his hospital stay. There was no evidence of any suicidal or homicidal behavior on the inpatient psychiatric unit. Patient remained in generally good behavioral control. His thought process linear arise. On the day of discharge: Patient seen and examined in treatment team. Chart reviewed. Case discussed with counselor, nursing staff and occupational therapist. All agreed that the patient is improved from a psychiatric standpoint. On my examination today, the patient is in good spirits. His thought process is fairly linear. He denies any suicidal or homicidal ideation. Denies any audiovisual hallucinations. No evident delusional beliefs. He is future oriented. Denies side effects from medications. No somatic complaints. He requests discharge from the inpatient psychiatric unit today. I have reinforced the need to follow-up with with primary care and with neurology and also to exercise seizure precautions including avoidance of driving or bathing on an outpatient basis until he is instructed otherwise by his neurologist. I bus info consultant that the patient is at low imminent risk of harm to self or others from a mental illness after weighing the acute, chronic, and protective factors and based on the available evidence. His level of function appears to be adequate for outpatient care. The patient has maximized benefit from this inpatient psychiatric hospital stay and will be discharged today in stable condition. He is to follow-up with outpatient mental health, primary care and neurology. I have counseled the patient regarding warning signs for need to return to the psychiatric emergency room as part of the general safety plan. Results Blood Pressure 116 / 58 Vital Signs Date Time Temp Pulse Resp B/P Pulse Ox O2 Delivery O2 Flow Rate FiO2 11/07/16 05:35 98.5 95 18 116/58 99 Item Value Date Time White Blood Count 7.2 TH/MM3 10/30/16 0608 Hemoglobin 13.0 GM/DL 10/30/16 0608 Platelet Count 208 TH/MM3 10/30/16 0608 Sodium Level 141 MEQ/L 10/30/16 0608 Potassium Level 4.4 MEQ/L 10/30/16 0608 Chloride Level 108 MEQ/L H 10/30/16 0608 Carbon Dioxide Level 26.1 MEQ/L 10/30/16 0608 Blood Urea Nitrogen 19 MG/DL H 10/30/16 0608 Creatinine 0.85 MG/DL 10/30/16 0608 Hemoglobin A1c 5.4 % 10/27/16 0643 Aspartate Amino Transf (AST/SGOT) 14 U/L L 10/27/16 0643 Alanine Aminotransferase (ALT/SGPT) 39 U/L 10/27/16 0643 Alkaline Phosphatase 75 U/L 10/27/16 0643 Ammonia LESS THAN 10 MCMOL/L L 10/27/16 1206 Thyroid Stimulating Hormone 3rd Gen 2.010 uIU/ML 10/27/16 0643 Summary of Procedures EEG - Minimal encephalopathy in sleep state. Probable psychotropic medication effects. Imaging None done Pending results at discharge: No Medications # of Antipsychotic meds at D/C: 1 Approp Antipsych med options 1 - Minimum of three failed multiple trials of monotherapy. 2 - Documented plan to taper to monotherapy due to previous use of multiple meds OR cross-taper in progress at D/C. 3 - Documentation of augmentation of Clozapine. 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 Stabilized and improved versus admission.) ICD Code: F28 GAF on discharge is 55 Mental Status Exam at Disch Patient is casually dressed. He is well groomed. He is awake and alert and oriented 3. No evidence of delirium. No motoric abnormalities noted. No ictal activity noted. Steady gait and station. Speech is within normal limits for rate, tone and volume. Language and fund of knowledge seem at least average for age. Mood is fair and affect is blunted. Thought process fairly linear. No loosening of associations. No evident delusions. Denies audiovisual hallucinations. Denies suicidal or homicidal ideation. Insight and judgment are fair. Pt Condition on Discharge: Stable Discharge Disposition: Discharge Home Discharge Instructions Diet Instructions: As Tolerated, No Restrictions Activities you can perform: Weight Bearing as Heather Activities to avoid: Bathing, Driving Scheduled Appointment: [facility] Appointment Date: Nov 13, 2016 Appointment Time: 7:30am New Medications: Allopurinol (Allopurinol) 300 Mg Tab 300 MG PO DAILY Gout Days 15 Ref 1 TAB Levetiracetam (Keppra) 750 Mg Tab 750 MG PO BID Control Seizures Days 15 Ref 1 TAB Lisinopril (Lisinopril) 20 Mg Tab 20 MG PO BID Days 15 Ref 1 TAB Olanzapine (Zyprexa) 10 Mg Tab 10 MG PO Mental Health Days 15 Ref 1 TAB Discontinued Medications: Citalopram (Celexa) 20 Mg Tab 20 MG PO DAILY Control Depression #30 Ref 0 TAB Diazepam (Valium) 5 Mg Tab 5 MG PO TID Ref 0 TAB Phenytoin Extended (Dilantin) 100 Mg Cap 100 MG PO TID Control Seizures #90 Ref 0 CAP Discharge Time > 30 minutes Discharge/Advance Care Plan Health Problems: (1) Other psychotic disorder not due to a substance or known physiological condition Goals to promote your health * To prevent worsening of your condition and complications * To maintain your health at the optimal level Directions to meet your goals Take your medications as prescribed Follow your dietary instruction Follow activity as directed Keep your appointments as scheduled Take your immunizations and boosters as scheduled If your symptoms worsen call your PCP, if no PCP go to Urgent Care Center or Emergency Room For 30/04 questions related to your inpatient stay or results of tests pending at discharge, please contact Dr. Beau Castelan at Smoking is Dangerous to Your Health. Avoid second hand smoking Beau Castelan MD Nov 07, 2016 09:30
[2016-11-07] MEDS ORDERED: ZYPR10TA PO (11:36)
[2016-11-07] MEDS ORDERED: KEPP750T PO (11:36)
== END 2016-11-07 18:25 | disposition home or self-care (01) | DRG 885 ==
LOC: H270 12:20
PROVIDERS: ADMIT Psychiatry & Neurology Psychiatry; ATTEND Psychiatry & Neurology Psychiatry
DX: F28 Other psychotic disorder not due to a substance or known physiological condition (principal); E87.1 Hypo-osmolality and hyponatremia; I10 Essential (primary) hypertension; G40.901 Epilepsy, unspecified, not intractable, with status epilepticus; M10.9 Gout, unspecified; D72.829 Elevated white blood cell count, unspecified; Z88.8 Allergy status to other drugs, medicaments and biological substances
CPT/HCPCS: 80048; 80053; 80061; 80185; 82140; 83036; 84443; 85025; 85027; 85610; 85730; 95819; J2060; Q0163